=== PATIENT | female | born 1985 | race Caucasian/White ===

== ENCOUNTER 2024-11-05 19:06 | Emergency (ER) | payer MEDICAID, SELFPAY ==
[2024-11-05 19:08] VITALS: BP 102/71; PULSE 92; RESP 16; TEMP 37.1; O2SAT 95; BMI 32.8
[2024-11-05 19:21] VITALS: PULSE 92; RESP 20; O2SAT 98; BMI 32.8
--- NOTE | 2024-11-05 19:46 | EKG_ITS ---
[facility] Test Date: 2024-11-05 Pat Name: GUIDO BENNETT Department: Room: - Gender: Female [employer] Member: : 1985 Requested By: Ruma Morin Order Number: [id number] Reading MD: Ruma Morin Measurements Intervals [place] Rate: 84 P: 48 NH: 142 QRS: 70 QRSD: 89 T: 16 QT: 360 QTc: 426 Interpretive Statements SINUS RHYTHM LOW QRS VOLTAGE IN PRECORDIAL LEADS [QRS DEFLECTION < 1.0 mV IN CHEST LEADS] Compared to ECG 12/18/2020 10:39:33 Low QRS voltage now present /store/S0/[id number].pdf
--- NOTE | 2024-11-05 19:48 | XR_ITS ---
Examination: AP chest single view Technique one AP portable upright chest single view Exam date and time: November 05, 2024 at 1949 hrs. Comparison October 01, 2019 Indications: Coughing shortness of breath beginning one week ago. Findings: Early left base pneumonia, retrocardiac Right lung clear Minimal prominence left ventricle Impression: Early left base pneumonia
--- NOTE | 2024-11-05 19:48 | EDNOTE_ITS ---
ED Dizzyness RME/HPI General Chief Complaint: Dizziness Stated Complaint: dizziness weakness Time Seen by Provider: 11/05/24 19:42 Arrival date/time: 11/05/24 19:06 RME / HPI RME / HPI Narrative: 39-year-old female patient was brought in by EMS for evaluation regarding near syncope. Patient was in the bathroom, suddenly developed near syncope, seeing black, dizzy, and generalized body weakness. Patient told me that she developed massive diarrhea x 1 before it happened. Nonbloody. Patient has been having cough, nasal congestion, sore throat, for the last 3 days. Was seen by PCP today and was started on promethazine, Motrin, Z-Yoshi, and albuterol. Related Data Home Medications ?Medication ?Instructions ?Recorded ?Confirmed conjugated estrogens 0.625 mg 0.625 mg PO QDAY 12/18/20 08/01/24 tablet (Premarin) omeprazole 20 mg tablet,delayed 20 mg PO QDAY 12/18/20 08/01/24 release Previous Rx's ?Medication ?Instructions ?Recorded docusate sodium 100 mg capsule 100 mg PO QDAY #30 caps 12/20/20 oxycodone-acetaminophen 10 mg-325 1 tab PO Q8H PRN pain #40 tabs 12/21/20 mg tablet (Percocet) albuterol sulfate 90 mcg/actuation 2 puff inhalation QID PRN 11/01/21 aerosol inhaler shortness of breath or wheezing #8.5 grams azithromycin 250 mg tablet See Rx Instructions PO .COMPLEX #6 11/01/21 tabs promethazine 12.5 mg tablet 12.5 mg PO TID PRN nausea and 11/01/21 vomiting #20 tabs famotidine 40 mg tablet 40 mg PO QDAY #30 tabs 10/01/22 Allergies Allergy/AdvReac Type Severity Reaction Status Date / Time ciprofloxacin Allergy Intermediate Rash Verified 11/05/24 19:26 latex Allergy Mild RASH Verified 11/05/24 19:26 metoclopramide AdvReac Severe ANXIETY, Verified 11/05/24 19:26 PANIC ATTACK cephalexin AdvReac Intermediate SEVERE Verified 11/05/24 19:26 DIARRHEA OMEGAXL Allergy Mild Rash Uncoded 11/05/24 19:26 Review of Systems Review of Systems Narrative Review of Systems: Review of system reviewed and within normal limits except mentioned in HPI ED Exam Narrative Physical exam: VITAL SIGNS: Reviewed. GENERAL APPEARANCE: Alert and interactive, follows commands, no acute distress, HEAD AND FACE: Non-traumatic. ENT: PERRL, pink conjunctivitis, eyelid no trauma, Mucous membrane moist. NECK: Supple, nontender, no nuchal rigidity. CHEST: No tenderness, no crepitus, no paradoxical movement, no retractions. LUNGS: Clear, well ventilated, symmetric, no rales, no wheezing, no ronchi, no stridor, good breath sounds bilaterally. HEART: Regular rate, regular rhythm, no murmur, no gallops. ABDOMEN: Soft, positive bowel sounds, nondistended, no guarding, nontender, no rebound, no masses, RECTAL: Deferred. GENITAL: Deferred. NEUROLOGICAL: Gross motor function intact sensory function intact, Appropriate for age. MUSCULOSKELETAL: low back nontender, full range of motion. EXTREMITIES: Nontender, full range of motion. SKIN: Color pink, dry, no rash, no lacerations, no abrasions, no contusions. LYMPHATICS: Deferred. Course Quality Measures none Orders Category Date Time Status Bedside COVID-19 Antigen Test NOW Care 11/05/24 19:46 Active Bedside Influenza A&B Antigen Test NOW Care 11/05/24 19:47 Completed EKG (ED ONLY) *Do not use* NOW Care 11/05/24 19:46 Completed EKG (ED Only) Stat Exams 11/05/24 19:46 Draft XR chest 1V Stat Exams 11/05/24 19:48 Completed CBC [CBC] Stat Lab 11/05/24 20:17 Completed CMP [Comprehensive Metabolic Panel] Stat Lab 11/05/24 20:17 Completed UA, C/S IF [Urinalysis, C/S if Indicated] Stat Lab 11/05/24 20:31 Completed Sodium Chloride 0.9% 1000 ml [Ns] 1,000 ml Med 11/05/24 19:47 Discontinued IV 999 mls/hr Vital Signs Vital signs: Vital Signs Temperature 98.8 F 11/05/24 19:08 Pulse Rate 92 11/05/24 19:08 Respiratory Rate 16 11/05/24 19:08 Blood Pressure 102/71 11/05/24 19:08 Pulse Oximetry (%) 95 11/05/24 19:08 Oxygen Delivery Method Room Air 11/05/24 19:08 Dizziness MDM Narrative MDM Narrative:: 39-year-old female patient was brought in by EMS for evaluation regarding near syncope. Patient was in the bathroom, suddenly developed near syncope, seeing black, dizzy, and generalized body weakness. Patient told me that she developed massive diarrhea x 1 before it happened. Nonbloody. Patient has been having cough, nasal congestion, sore throat, for the last 3 days. Was seen by PCP today and was started on promethazine, Motrin, Z-Yoshi, and albuterol. Laboratory workup all came back unremarkable except for leukocytosis of 16.6. Urinalysis no UTI, is a contaminated. Urine. Chest x-ray showed early left base pneumonia. Patient verbalized significant improvement of symptoms after patient received IV fluids. Patient was advised to continue taking Zithromax prescribed by PCP today. Stable for discharge. Patient data External records reviewed:: None Clinical information provided by:: patient Social determinants that could affect healthcare access:: none Patient has the following chronic illnesses:: None How is presenting disease/condition affected by chronic disease/condition?: no chronic disease Evaluation data The following diagnostics were reviewed and interpreted by me:: lab results, radiology exam(s) and EKG tracing(s) Lab and/or radiology exams considered but not ordered:: None Interpretation Summary: EKG showed sinus rhythm, ventricular rate of 84 bpm, MS interval 142 MS, no ST segment elevation depression laboratory workup all came back unremarkable except for leukocytosis 16.6. Chest x-ray showed early left base pneumonia. Results discussed with the patient. Medications / Prescriptions Medications or Prescriptions considered but not ordered:: Plan Medication administrations:: Medication Administration History Discontinued Medications Sodium Chloride (Ns) 1,000 mls @ 999 mls/hr IV .Q1H1M ONE Stop: 11/05/24 20:47 Last Admin: 11/05/24 20:24 Dose: 999 mls/hr Documented By: AC IV fluids for hydration Consultations Consultation(s) initiated? (list below): No Diagnosis Dizziness Differential Diagnosis: other (Dehydration, near syncope, dizziness, pneumonia) Most likely diagnosis given after review of the tests above:: Near-syncope, pneumonia Admission Indicated Admission indicated?: not indicated Admission Request Was there a request for admission?: No Disposition Plan Disposition Plan: Discharge Discharge Attestation Discharge Attestation: The patient and all family members were given an opportunity to ask questions and understood the discharge instructions. Discharge instructions specifically effects, indications for sooner follow up or return to the emergency department, and the expected course of current diagnosis. Patient condition: Stable Discharge Plan Plan Patient Disposition: HOME (Self Care) Disposition Comment: stable Prescriptions/Referrals Prescriptions/Med Rec: No Action Premarin 0.625 mg Tablet 0.625 mg PO QDAY omeprazole 20 mg Tablet,Delayed Release (Dr/Ec) 20 mg PO QDAY docusate sodium 100 mg Capsule 100 mg PO QDAY Qty: 30 0RF oxycodone-acetaminophen [Percocet] 10-325 mg tablet 1 tab PO Q8H MDD 3 PRN (Reason: pain) Qty: 40 0RF azithromycin 250 mg tablet See Rx Instructions .ROUTE .COMPLEX Qty: 6 0RF Rx Instructions: For 250 mg dose pack: take 500 mg today (day 1), then 250 mg for 4 days (days 2-5) albuterol sulfate 90 mcg/actuation HFA aerosol inhaler 2 puff inhalation QID PRN (Reason: shortness of breath or wheezing) Qty: 8.5 0RF promethazine 12.5 mg tablet 12.5 mg PO TID PRN (Reason: nausea and vomiting) Qty: 20 0RF famotidine 40 mg tablet 40 mg PO QDAY Qty: 30 0RF Referrals: No Primary/Family,Physician [Referring Provider] - In 1 week Problem List Clinical Impression: PNA (pneumonia) Patient/Caregiver Discharge Instructions Discharge Activity: activity as tolerated Education Materials: What Is Pneumonia? Additional Instructions: Thank you for the opportunity for serving you today. You are stable for discharged . You are advised to: Follow-up with your PCP in 1 to 2 days Return to ED for worsening of symptoms Increase oral fluids Take medication as prescribed by your PCP Try to stop taking your promethazine if it will give you a lot of dizziness. Print Language: Hungarian Stand Alone Forms: Debbie Award Info., Patient Portal Info Letter KIM/CHAUNCEY Supervising Physician KIM/CHAUNCEY Supervising Physician: MD Meredith
[2024-11-05] MEDS: SODIUM CHLORIDE 0.9% 1000 ML 1,000 ML 999 ML IV (20:24)
[2024-11-05 20:43] LABS: Collection Type, Urine Clean Catch
[2024-11-05 20:45] LABS: Basophils % (Auto) 0 % (0-2.5); Eosinophils % (Auto) 0 % (0-10); Hematocrit 40.1 % (36.0-46.0); Hemoglobin 13.8 g/dL (12.0-16.0); Immature Granulocytes % (Auto) 1 % (0-0); Immature Granulocytes Auto 0.09 Thou/mm3 (0.00-0.00); Lymphocytes # (Auto) 1.2 Thou/mm3 (1.0-4.8); Lymphocytes % (Auto) 8 % (10-50); Mean Corpuscular HGB Conc 34.4 g/dl (31.0-37.0); Mean Corpuscular Hemoglobin 28.5 pg (25.0-35.0); Mean Corpuscular Volume 83 fL (80-100); Monocytes # (Auto) 1.3 Thou/mm3 (0.0-0.8); Monocytes % (Auto) 8 % (0-12); Neutrophils # (Auto) 13.9 Thou/mm3 (1.8-7.7); Neutrophils % (Auto) 84 % (37-80); Nucleated Red Blood Cell % 0 /100 WBC (0); Platelet Count 295 Thou/mm3 (140-440); RDW Standard Deviation 37.9 fL (36.4-46.3); Red Blood Count 4.84 Miln/mm3 (4.00-5.20); White Blood Count 16.6 Thou/mm3 (3.6-11.0)
[2024-11-05 20:53] LABS: Bacteria,Urine Rare; Bilirubin,Urine Negative (Negative); Blood,Urine 1+ (Negative); Clarity,Urine Turbid (Clear/Hazy); Color,Urine Yellow (Lt Yel-Yel); Culture Indicated,Urine Contaminated; Glucose, Urine Trace (Negative); Ketones,Urine 1+ (Negative); Leukocyte Esterase,Urine Positive (Negative); Nitrite,Urine Negative (Negative); Protein,Urine 1+ (Neg - Trace); RBC,Urine 6 /hpf (0-3); Specific Gravity,Urine 1.034 (1.001-1.035); Squamous Epithelial Cell,Urine 16 /hpf (0-5); Urobilinogen,Urine Negative mg/dL (0.0-1.0); WBC,Urine 25 /hpf (0-5)
[2024-11-05 21:00] VITALS: BP 103/58; PULSE 89; RESP 18; TEMP 36.6; O2SAT 96
[2024-11-05 21:02] LABS: Alanine Aminotransferase 18 U/L (10-49); Albumin, Serum 4.8 gm/dL (3.5-5.0); Albumin/Globulin Ratio 1.5 (1.2-2.2); Alkaline Phosphatase 90 U/L (46-116); Anion Gap 12 (7-16); Aspartate Amino Transferase 20 U/L (0-34); BUN/Creatinine Ratio 13 Ratio (12-20); Bilirubin,Total 0.8 mg/dL (0.3-1.2); Blood Urea Nitrogen 12 mg/dL (9-23); Calcium 9.6 mg/dL (8.3-10.6); Calcium (Corrected) 9.6 mg/dL (8.5-10.1); Carbon Dioxide 20.9 mMol/L (20.0-31.0); Chloride 103 mMol/L (98-107); Creatinine (Component) 0.9 mg/dL (0.6-1.3); Estimated Creatinine Clearance 86.1 mL/min (>60); Globulin 3.2 gm/dL (2.3-3.5); Glucose 99 mg/dL (74-106); Osmolality,Calculated 271 (275-295); Potassium 3.5 mMol/L (3.4-5.1); Sodium 136 mMol/L (136-145); eGFR > 60 See Note
[2024-11-05 21:43] VITALS: BP 103/57; PULSE 79; RESP 18; TEMP 36.7; O2SAT 96
== END 2024-11-05 21:45 | disposition home or self-care (01) ==
PROVIDERS: Nurse Practitioner Family; Emergency Provider Emergency Medicine; PCP Family Medicine
DX: J18.9 Pneumonia, unspecified organism (principal)
CPT/HCPCS: 36415; 71045; 80053; 81001; 85025; 87400; 87811; 93005; 96360; 99284; J7030

== ENCOUNTER 2025-01-30 14:32 | Emergency (ER) | payer MEDICAID, SELFPAY ==
[2025-01-30 14:35] VITALS: BMI 30.9
[2025-01-30 14:59] VITALS: BP 119/81; PULSE 92; RESP 16; TEMP 36.8; O2SAT 97
--- NOTE | 2025-01-30 16:41 | EDNOTE_ITS ---
<Statement entered by Dipti Villarreal MD - 01/30/25 17:51> As co-signing physician, I was present and available for consult prn. I concur with the plan and care as documented by the midlevel provider. ED Headache RME/HPI General Chief Complaint: Headache Stated Complaint: IRBY WITH BLUR VISION Time Seen by Provider: 01/30/25 15:14 Source: patient Arrival date/time: 01/30/25 14:32 39-year-old female with no known medical history presents to the emergency room with a chief complaint of a unilateral right-sided headache with intermittent blurry vision x 1 day Mode of arrival: ambulatory Limitations: no limitations Related Data Home Medications ?Medication ?Instructions ?Recorded ?Confirmed conjugated estrogens 0.625 mg 0.625 mg PO QDAY 1 08/01/24 tablet (Premarin) omeprazole 20 mg tablet,delayed 20 mg PO QDAY 12/18/20 08/01/24 release Previous Rx's ?Medication ?Instructions ?Recorded docusate sodium 100 mg capsule 100 mg PO QDAY #30 caps 12/20/20 oxycodone-acetaminophen 10 mg-325 1 tab PO Q8H PRN douglas n #40 tabs 12/21/20 mg tablet (Percocet) albuterol sulfate 90 mcg/actuation 2 puff inhalation Q ID PRN 11/01/21 aerosol inhaler shortness of breath or wheez ing #8.5 grams azithromycin 250 mg tablet See Rx Instructions PO .COM PLEX #6 11/01/21 tabs promethazine 12.5 mg tablet 12.5 mg PO TID PRN nausea and 11/01/21 vomiting #20 tabs famotidine 40 mg tablet 40 mg PO QDAY #30 tabs 10/01 Allergies Allergy/AdvReac Type Severity Reaction Status Date / Time ciprofloxacin Allergy Intermediate Rash Verified 11/05/24 19:26 latex Allergy Mild RASH Verified 11/05/24 19:26 metoclopramide AdvReac Severe ANXIETY, Verified 11/05/24 19:26 PANIC ATTACK cephalexin AdvReac Intermediate SEVERE Verified 11/05/24 19:26 DIARRHEA OMEGAXL Allergy Mild Rash Uncoded 11/05/24 19:26 Review of Systems Review of Systems Systems Reviewed: All systems reviewed, normal except as documented Constitutional Constitutional: Reports system reviewed and no additional complaints, except as documented, Denies fatigue, Denies fever(s), Reports headache(s) and Reports weakness Eyes Eyes: Reports system reviewed and no additional complaints, except as documented, Denies blurry vision and Denies change in vision ENT Ears, Nose, Mouth, and Throat: Reports system reviewed and no additional complaints, except as documented, Denies otalgia, Reports headache(s), Denies nasal congestion, Denies throat swelling and Denies vertigo Cardiovascular Cardiovascular: Reports system reviewed and no additional complaints, except as documented, Denies chest pain, Denies dyspnea and Denies dyspnea on exertion Respiratory Respiratory: Reports system reviewed and no additional complaints, except as documented, Denies chest congestion, Denies cough, Denies dyspnea, Denies dyspnea on exertion and Denies wheezing Gastrointestinal Gastrointestinal: Reports system reviewed and no additional complaints, except as documented, Denies abdominal pain, Denies cramping, Denies nausea and Denies vomiting Genitourinary Genitourinary: Reports system reviewed and no additional complaints, except as documented Musculoskeletal Musculoskeletal: Reports system reviewed and no additional complaints, except as documented and Denies back pain Integumentary/Breasts Skin/Breast: Reports system reviewed and no additional complaints, except as documented and Denies wounds Neurologic Neurologic: Reports system reviewed and no additional complaints, except as d ocumented, Denies confusion, Reports headache(s), Denies lack of coordination, Denies vertigo and Reports weakness Psychiatric Psychiatric: Reports system reviewed and no additional complaints, except as documented, Denies anxiety, Denies confusion, Denies depression, Denies paranoia, Denies suicidal ideation and Denies tactile hallucinations Endocrine Endocrine: Reports system reviewed and no additional complaints, except as documented and Denies fatigue Hematologic/Lymphatic Hematologic/Lymphatic: Reports system reviewed and no additional complaints, except as documented and Denies lymphadenopathy Allergic/Immunologic Allergic/Immunologic: Reports system reviewed and no additional complaints, except as documented, Denies throat swelling, Denies urticaria and Denies wheezing Past Medical History Past Medical History NEUROLOGIC: Positive Migraine (INDUCED BY LUPRON SHOTS); Negative Neurological Disorders or Seizures CARDIAC: Positive Cardiac Disorders and Edema (LEFT ANKLE PT HAS BRACE); Negative Congestive Heart Failure, Cellulitis or Varicose Veins RESPIRATORY: Positive Pneumonia (DEVELOP PNUEMONIA POST OP HYSTERECTOMY 2018); Negative Chronic Obstructive Pulmonary Disease (COPD), Tuberculosis, Pulmonary Embolism or Sleep Apnea GASTROINTESTINAL: Positive Gastrointestinal Disorders, Pancreatitis (HX), Gall Bladder Disease (LAP) and Gastroesophageal Reflux Disease (TAKES MED); Negative Hepatitis GENITOURINARY: Positive Genitourinary Disorders and Kidney Stones (HAD ONE PROC); Negative Renal Disease REPRODUCTIVE: Positive Previous Pregnancies (X2) MENOPAUSE AGE: 35 (Patient had total hysterectomy 6 months ago) MUSCULOSKELETAL: Positive Musculoskeletal Disorders, Scoliosis (MILD) and Fractures (LEFT TIBIA FOR THIS PROC (PT FELL 04/2020) HAS BRACE) ENDOCRINE: Positive Endocrine Disorders; Negative Diabetes Mellitus Type 1 or Diabetes Mellitus Type 2 HEMATOLOGIC: Negative Blood Disorders or Clotting Problems OTHER HISTORY: Positive Falls (04/2020 FOR THIS PROC, 10/2020 ER VISIT) and Chicken Pox; Negative Hospitalization, Autoimmune Disease, Shingles, Blood Transfusions, Blood Transfusion Reaction, Anesthesia Reactions, Chemotherapy, Radiation Therapy, MRSA, Measles, Mumps or Cancer Family History FAMILY HISTORY: Positive Family Psychiatric Problems, Family Cardiac Disorders, Family Gastrointestinal Problems and Family Surgery; Negative Family Respiratory Disorders, Family Cancer or Family Anesthesia Reaction Surgical History SURGICAL: Positive Abdominal Surgery, Hysterectomy (KAMRA WITH GISELA SALPINGO) and Section; Negative Cardiac Surgery, Pacemaker, Endocrine Surgery, Ear Surgery, Nephrectomy, Joint Replacement or Neurologic Surgery Social History SMOKING STATUS: Former smoker SECOND HAND EXPOSURE: Yes SUBSTANCE USE: does not use ED Exam General Limitations: Present no limitations General appearance: Present alert and in no apparent distress Head Head exam: Present atraumatic Eye Eye exam: Present normal appearance, PERRL and EOMI ENT ENT exam: Present normal exam, normal oropharynx and mucous membranes moist Neck Neck exam: Present normal inspection, full ROM and trachea midline Chest Chest inspection: Present normal inspection and symmetric chest wall rise Respiratory Respiratory exam: Present normal lung sounds bilaterally Cardiovascular Cardiovascular exam: Present regular rate, normal rhythm and normal heart sounds Abdominal Exam Abdominal exam: Present soft and normal bowel sounds Extremities Exam Extremities exam: Present normal inspection and full ROM Back Exam Back exam: Present normal inspection and full ROM Neurological Exam Neurological exam: Present alert, oriented X3, CN II-XII intact, normal gait and reflexes normal Expanded Neurological Exam Patient oriented to: Present person, place and time Speech: Present fluid speech Cranial nerves: Normal: EOM function (II, III, IV, ), facial sensation (V) and facial palsy (VII) Cerebellar function: Normal: finger to nose Cerebellar function: Present normal gait Motor strength - LUE: 5/5 Motor strength - RUE: 5/5 Motor strength - LLE: 5/5 Motor strength - RLE: 5/5 Coma scale eye opening: spontaneous Coma scale motor response: obeys commands Coma scale verbal response: oriented Coma scale total: 15 Psychiatric Psychiatric exam: Present normal affect and normal mood Skin Skin exam: Present warm, dry, intact and normal color Course Quality Measures none Orders Category Date Time Status Acetaminophen Tab [Tylenol Tab] Med 01/30/25 15:13 Discontinued 650 mg PO X1 ONE DiphenhydrAMINE [Benadryl] Med 01/30/25 15:13 Discontinued 25 mg PO X1 ONE SUMAtriptan INJ [Imitrex Inj] Med 01/30/25 15:13 Discontinued 6 mg SC X1 ONE Vital Signs Vital signs: Vital Signs Temperature 98.2 F 01/30/25 14:59 Pulse Rate 92 01/30/25 14:59 Respiratory Rate 16 01/30/25 14:59 Blood Pressure 119/81 01/30/25 14:59 Pulse Oximetry (%) 97 01/30/25 14:59 Oxygen Delivery Method Room Air 01/30/25 14:59 Headache MDM Narrative MDM Narrative:: 39-year-old female with no known medical history presents to the emergency room with a chief complaint of a unilateral right-sided headache with intermittent blurry vision x 1 day Patient is hemodynamically stable and in no apparent distress Physical examination shows a normal GCS of 15. She is alert and oriented x 3. Pupils are PERRLA EOMs are intact. The patient has a normal steady gait all cranial reflexes are intact. Patient denies any dizziness lightheadedness confusion near syncope episodes. Patient states the headache began this morning and she is having more pain to the right side of her head. Medication was prescribed to the patient but patient states at this point she does not want to take any medication due to her having a lot of allergies. Patient states that at this time she would like to be discharged with strict return precautions if anything gets worse. Patient was discharged and educated to follow-up with primary care provider in the next 24 to 48 hours and return to the emergency room for any evidence of worsening signs or symptoms Patient data External records reviewed:: [facility] previous records Clinical information provided by:: patient Social determinants that could affect healthcare access:: none Patient has the following chronic illnesses:: No chronic illness How is presenting disease/condition affected by chronic disease/condition?: no chronic disease Evaluation data The following diagnostics were reviewed and interpreted by me:: lab results and radiology exam(s) Lab and/or radiology exams considered but not ordered:: Labs and radiology exams considered in order Interpretation Summary: N/A Medications / Prescriptions Medications or Prescriptions considered but not ordered:: Medication given Medication administrations:: Medication Administration History Discontinued Medications Acetaminophen (Acetaminophen 325 Mg Tablet) 650 mg PO X1 ONE Stop: 01/30/25 15:14 Last Admin: 01/30/25 15:38 Dose: Not Given Documented By: MED Non-Admin Reason: Patient Refused Diphenhydramine HCl (Diphenhydramine Elix 25 Mg/10 Ml Udc) 25 mg PO X1 ONE Stop: 01/30/25 15:14 Last Admin: 01/30/25 15:38 Dose: Not Given Documented By: KF Non-Admin Reason: Patient Refused Sumatriptan Succinate (Sumatriptan Inj 6 Mg/0.5 Ml Vial) 6 mg SC X1 ONE Stop: 01/30/25 15:14 Last Admin: 01/30/25 15:38 Dose: Not Given Documented By: KF Non-Admin Reason: Patient Refused Medication not given Consultations Consultation(s) initiated? (list below): No Diagnosis Differential diagnosis headache: migraine, tension headache, subarachnoid hemorrhage and headache Most likely diagnosis given after review of the tests above:: Headache Admission Indicated Admission indicated?: not indicated Admission Request Was there a request for admission?: No Disposition Plan Disposition Plan: Discharge Discharge Attestation Discharge Attestation: The patient and all family members were given an opportunity to ask questions and understood the discharge instructions. Discharge instructions specifically effects, indications for sooner follow up or return to the emergency department, and the expected course of current diagnosis. Patient condition: Stable Discharge Plan Plan Patient Disposition: HOME (Self Care) Disposition Comment: Stable Prescriptions/Referrals Prescriptions/Med Rec: No Action Premarin 0.625 mg Tablet 0.625 mg PO QDAY omeprazole 20 mg Tablet,Delayed Release (Dr/Ec) 20 mg PO QDAY docusate sodium 100 mg Capsule 100 mg PO QDAY Qty: 30 0RF oxycodone-acetaminophen [Percocet] 10-325 mg tablet 1 tab PO Q8H MDD 3 PRN (Reason: pain) Qty: 40 0RF azithromycin 250 mg tablet See Rx Instructions .ROUTE .COMPLEX Qty: 6 0RF Rx Instructions: For 250 mg dose pack: take 500 mg today (day 1), then 250 mg for 4 days (days 2-5) albuterol sulfate 90 mcg/actuation HFA aerosol inhaler 2 puff inhalation QID PRN (Reason: shortness of breath or wheezing) Qty: 8.5 0RF promethazine 12.5 mg tablet 12.5 mg PO TID PRN (Reason: nausea and vomiting) Qty: 20 0RF famotidine 40 mg tablet 40 mg PO QDAY Qty: 30 0RF Referrals: Rosendo Koch MD [Primary Care Provider] - In 1 week Problem List Clinical Impression: Headache Patient/Caregiver Discharge Instructions Education Materials: Self-Care for Headaches Additional Instructions: Please follow-up with your primary care provider in the next 24 to 40 hours. For any evidence of worsening sign or symptom return to the emergency room immediately Print Language: Amharic Stand Alone Forms: Debbie Award Info., Patient Portal Info Letter PA/CHAUNCEY Supervising Physician PA/CHAUNCEY Supervising Physician: Dr. VILLARREAL
== END 2025-01-30 15:39 | disposition home or self-care (01) ==
PROVIDERS: Emergency Provider Emergency Medicine; PCP Family Medicine
DX: R51.9 Headache, unspecified (principal); H53.8 Other visual disturbances
CPT/HCPCS: 99282

== ENCOUNTER 2025-04-15 20:57 | Emergency (ER) | payer MEDICAID, SELFPAY ==
[2025-04-15 20:58] VITALS: BMI 28.3
[2025-04-15 21:18] VITALS: BP 109/75; PULSE 84; RESP 18; TEMP 36.7; O2SAT 98
[2025-04-15 22:22] LABS: Collection Type, Urine Clean Catch
--- NOTE | 2025-04-15 22:27 | EDNOTE_ITS ---
ED Abdominal Pain RME/HPI General Chief Complaint: Abdominal Pain Stated complaint: ABD PAIN R FLANK PAIN NV Arrival date/time: 04/15/25 20:57 RME / HPI RME / HPI narrative: This section includes all my notes and documentations, including HPI, PE, and ED course. Pawel Laird MD HPI: 40 y/o female with history of Hysterectomy, Pancreatitis, Gall Bladder Disease, and Gastroesophageal Reflux Disease presents with upper abdominal pain that radiates to the back, vomiting, and chills x several hours. Patient started Wegovy in November, several months ago. No other complaints. ROS: All negative except as documented in HPI. Physical Exam: General: Alert and oriented. No acute distress when remaining still. Eyes: Conjunctivae and lids clear. ENT: No nasal congestion. Neck: Supple. Heart: RRR. Lungs: No respiratory distress. Good air movement. No rhonchi, wheezing, rales. Abdomen: Soft with rght upper quadrant tenderness. Normal bowel sounds. No distension. No rebound or guarding. Back: No CVA tenderness. Skin: Warm and dry. Neuro: Alert and oriented X 3. I reviewed all diagnostic test results: My review of the US report is: NAD. My review of the Abdomen/Pelvis CT report is: NAD. Blood tests and urine tests unremarkable. Influenza: Negative. At this point, diagnoses include: Stomach ulcer. Treatment here included: Pepcid 20 mg, Zofran 4 mg, Protonix 40 mg. Significant improvement noted. Recommended outpatient care. Based on my best medical judgment, made decision no further evaluation or treatment indicated at this time. Patient understands and agrees to the discharge instructions customized and printed, see below. Discharge instructions from Dr. Laird: ?After evaluation, your symptoms are due to stomach ulcer (see attached handout).? There is no emergency such as appendicitis needing emergent surgery. ?To help heal the ulcer, take Omeprazole 40 mg every morning and Famotidine 40 mg at bedtime for a week then as needed. ?Zofran for nausea/vomiting.? Clear liquid diet for 24 hours.? Then slowly advance diet as tolerated. ?Avoid food and beverages that can trigger and worsen ulcers.? See attached handout. ?See a private doctor on 04/17/2025 for recheck and further care. Ask to review all test results and official radiology reports, to make sure you receive all necessary follow-ups and monitoring. To make sure there is no serious intra-abdominal condition, ask for help with more investigation not available here in the ER.? Such as EGD or scoping the stomach, colonoscopy or scoping the colon, and referral to see business continuity planner. ?Seek immediate medical care with worsening or with any concerns. Pawel Laird MD Related Data Home Medications ?Medication ?Instructions ?Recorded ?Confirmed conjugated estrogens 0.625 mg 0.625 mg PO QDAY 1 08/01/24 tablet (Premarin) omeprazole 20 mg tablet,delayed 20 mg PO QDAY 12/18/20 08/01/24 release Previous Rx's ?Medication ?Instructions ?Recorded docusate sodium 100 mg capsule 100 mg PO QDAY #30 caps 12/20/20 oxycodone-acetaminophen 10 mg-325 1 tab PO Q8H PRN douglas n #40 tabs 12/21/20 mg tablet (Percocet) albuterol sulfate 90 mcg/actuation 2 puff inhalation Q ID PRN 11/01/21 aerosol inhaler shortness of breath or wheez ing #8.5 grams azithromycin 250 mg tablet See Rx Instructions PO .COM PLEX #6 11/01/21 tabs promethazine 12.5 mg tablet 12.5 mg PO TID PRN nausea and 11/01/21 vomiting #20 tabs famotidine 40 mg tablet 40 mg PO QDAY #30 tabs 10/01 famotidine 40 mg tablet 40 mg PO .bedtime #30 tabs 0 04/16/25 omeprazole 40 mg capsule,delayed 40 mg PO QDAY #30 cap s 04/16/25 release ondansetron 4 mg disintegrating 4 mg PO TID PRN nausea and 04/16/25 tablet vomiting 30 days #10 tabs Allergies Allergy/AdvReac Type Severity Reaction Status Date / Time ciprofloxacin Allergy Intermediate Rash Verified 04/15/25 21:04 latex Allergy Mild RASH Verified 04/15/25 21:04 metoclopramide AdvReac Severe ANXIETY, Verified 04/15/25 21:04 PANIC ATTACK cephalexin AdvReac Intermediate SEVERE Verified 04/15/25 21:04 DIARRHEA OMEGAXL Allergy Mild Rash Uncoded 04/15/25 21:04 Review of Systems Review of Systems Systems Reviewed: All systems reviewed, normal except as documented Past Medical History Past Medical History NEUROLOGIC: Positive Migraine (INDUCED BY LUPRON SHOTS) CARDIAC: Positive Cardiac Disorders and Edema (LEFT ANKLE PT HAS BRACE) RESPIRATORY: Positive Pneumonia (DEVELOP PNUEMONIA POST OP HYSTERECTOMY 2018) GASTROINTESTINAL: Positive Gastrointestinal Disorders, Pancreatitis (HX), Gall Bladder Disease (LAP) and Gastroesophageal Reflux Disease (TAKES MED) GENITOURINARY: Positive Genitourinary Disorders and Kidney Stones (HAD ONE PROC) REPRODUCTIVE: Positive Previous Pregnancies (X2) MUSCULOSKELETAL: Positive Musculoskeletal Disorders, Scoliosis (MILD) and Fractures (LEFT TIBIA FOR THIS PROC (PT FELL 04/2020) HAS BRACE) ENDOCRINE: Positive Endocrine Disorders OTHER HISTORY: Positive Falls (04/2020 FOR THIS PROC, 10/2020 ER VISIT) and Chicken Pox Family History FAMILY HISTORY: Positive Family Psychiatric Problems, Family Cardiac Disorders, Family Gastrointestinal Problems and Family Surgery Surgical History SURGICAL: Positive Abdominal Surgery and Section Social History SECOND HAND EXPOSURE: Yes ED Exam Narrative Physical exam: Refer to HPI Course Quality Measures none Orders Category Date Time Status Bedside Influenza A&B Antigen Test NOW Care 04/15/25 22:[address] abdomen pelvis wo con Stat Exams 04/15/25 22:30 Taken US gall bladder Stat Exams 04/16/25 01:57 Taken Amylase Stat Lab 04/15/25 22:47 Completed Bilirubin,Direct Stat Lab 04/15/25 22:47 Completed CBC Stat Lab 04/15/25 22:47 Completed CMP [Comprehensive Metabolic Panel] Stat Lab 04/15/25 22:47 Completed HCG Qualitative,Urine Stat Lab 04/15/25 22:18 Completed Lipase Stat Lab 04/15/25 22:47 Completed Magnesium Stat Lab 04/15/25 22:47 Completed UA, C/S IF [Urinalysis, C/S if Indicated] Stat Lab 04/15/25 22:18 Completed Famotidine [Pepcid] Med 04/15/25 22:29 Discontinued 40 mg PO X1 ONE Ondansetron Odt [Zofran Odt] Med 04/15/25 22:21 Discontinued 4 mg PO X1 ONE Pantoprazole [Protonix] Med 04/15/25 22:29 Discontinued 40 mg PO X1 ONE Vital Signs Vital signs: Vital Signs Temperature 98.1 F 04/15/25 21:18 Pulse Rate 84 04/15/25 21:18 Respiratory Rate 18 04/15/25 21:18 Blood Pressure 109/75 04/15/25 21:18 Pulse Oximetry (%) 98 04/15/25 21:18 Oxygen Delivery Method Room Air 04/15/25 21:18 Abdominal Pain MDM MDM Narrative MDM Narrative:: Scribe Attestation: I, Sunita Rocha, am scribing for and in the presence of Dr. Laird. Provider Notation: Although this document has been carefully reviewed, there may still be some phonetic and other typographical errors.? These errors are purely grammatical due to imperfections in the software program and should not be construed in any way to? compromise the substance of the patient's medical care during this visit. 40 y/o female with history of Hysterectomy, Pancreatitis, Gall Bladder Disease, and Gastroesophageal Reflux Disease presents with upper abdominal pain that radiates to the back, vomiting, and chills x several hours. Patient started Wegovy in November, several months ago. No other complaints. Patient data External records reviewed:: [facility] previous records (Reviewed prior ED records from 01/30/25. Patient was seen for Headache.) Clinical information provided by:: patient Social determinants that could affect healthcare access:: none Patient has the following chronic illnesses:: Migraine, Edema, Pancreatitis, Gall Bladder Disease, Gastroesophageal Reflux Disease, Kidney Stones, Scoliosis How is presenting disease/condition affected by chronic disease/condition?: exacerbated by Evaluation data The following diagnostics were reviewed and interpreted by me:: lab results and radiology exam(s) Lab and/or radiology exams considered but not ordered:: None Interpretation Summary: I reviewed all diagnostic test results: My review of the US report is: NAD. My review of the Abdomen/Pelvis CT report is: NAD. Blood tests and urine tests unremarkable. Influenza: Negative. Medications / Prescriptions Medications or Prescriptions considered but not ordered:: None Medication administrations:: Medication Administration History Discontinued Medications Famotidine (Famotidine 20 Mg Tablet) 40 mg PO X1 ONE Stop: 04/15/25 22:30 Last Admin: 04/15/25 23:02 Dose: 40 mg Documented By: MED Ondansetron HCl (Ondansetron Odt 4 Mg Tabrap) 4 mg PO X1 ONE; Protocol Stop: 04/15/25 22:22 Last Admin: 04/15/25 23:02 Dose: 4 mg Documented By: MED Pantoprazole Sodium (Pantoprazole 40 Mg Tablet) 40 mg PO X1 ONE Stop: 04/15/25 22:30 Last Admin: 04/15/25 23:02 Dose: 40 mg Documented By: MED Pepcid 20 mg, Zofran 4 mg, Protonix 40 mg. Consultations Consultation(s) initiated? (list below): No Diagnosis Differential diagnosis abdominal pain: abdominal pain, acute appendicitis, calculus of kidney, constipation, diverticulitis, gastroenteritis, pancreatitis and small bowel obstruction Most likely diagnosis given after review of the tests above:: Stomach ulcer Admission Indicated Admission indicated?: not indicated Explain why admission is indicated or not indicated:: With significant improvement in no condition needing emergent intervention, there was no indication for admission. Admission Request Was there a request for admission?: No Disposition Plan Disposition Plan: Discharge Discharge Attestation Discharge Attestation: The patient and all family members were given an opportunity to ask questions and understood the discharge instructions. Discharge instructions specifically effects, indications for sooner follow up or return to the emergency department, and the expected course of current diagnosis. Patient condition: Stable Discharge Plan Plan Patient Disposition: HOME (Self Care) Prescriptions/Referrals Prescriptions/Med Rec: New famotidine 40 mg tablet 40 mg PO .bedtime Qty: 30 0RF omeprazole 40 mg capsule,delayed release(DR/EC) 40 mg PO QDAY Qty: 30 0RF ondansetron 4 mg tablet,disintegrating 4 mg PO TID PRN (Reason: nausea and vomiting) 30 Days Qty: 10 0RF No Action Premarin 0.625 mg Tablet 0.625 mg PO QDAY omeprazole 20 mg Tablet,Delayed Release (Dr/Ec) 20 mg PO QDAY docusate sodium 100 mg Capsule 100 mg PO QDAY Qty: 30 0RF oxycodone-acetaminophen [Percocet] 10-325 mg tablet 1 tab PO Q8H MDD 3 PRN (Reason: pain) Qty: 40 0RF azithromycin 250 mg tablet See Rx Instructions .ROUTE .COMPLEX Qty: 6 0RF Rx Instructions: For 250 mg dose pack: take 500 mg today (day 1), then 250 mg for 4 days (days 2-5) albuterol sulfate 90 mcg/actuation HFA aerosol inhaler 2 puff inhalation QID PRN (Reason: shortness of breath or wheezing) Qty: 8.5 0RF promethazine 12.5 mg tablet 12.5 mg PO TID PRN (Reason: nausea and vomiting) Qty: 20 0RF famotidine 40 mg tablet 40 mg PO QDAY Qty: 30 0RF Referrals: No Primary/Family,Physician [Primary Care Provider] - In 1 week Problem List Clinical Impression: Stomach ulcer Patient/Caregiver Discharge Instructions Discharge Activity: activity as tolerated Education Materials: ED PEPTIC ULCER vs GASTRITIS Additional Instructions: Discharge instructions from Dr. Laird: ?After evaluation, your symptoms are due to stomach ulcer (see attached handout).? There is no emergency such as appendicitis needing emergent surgery. ?To help heal the ulcer, take Omeprazole 40 mg every morning and Famotidine 40 mg at bedtime for a week then as needed. ?Zofran for nausea/vomiting.? Clear liquid diet for 24 hours.? Then slowly advance diet as tolerated. ?Avoid food and beverages that can trigger and worsen ulcers.? See attached handout. ?See a private doctor on 04/17/2025 for recheck and further care. Ask to review all test results and official radiology reports, to make sure you receive all necessary follow-ups and monitoring. To make sure there is no serious intra-abdominal condition, ask for help with more investigation not available here in the ER.? Such as EGD or scoping the stomach, colonoscopy or scoping the colon, and referral to see business continuity planner. ?Seek immediate medical care with worsening or with any concerns. Print Language: Bolivian Stand Alone Forms: Debbie Award Info., Patient Portal Info Letter
--- NOTE | 2025-04-15 22:30 | XR_ITS ---
Examination: CT abdomen and pelvis without contrast. Coronal 3-D reconstructions. Sagittal 2-D reconstructions. Date and time of exam:April 16, 2025 0021 hours Comparison March 08, 2019 INDICATIONS: Sudden right-sided flank pain today. CTDI: vol (mGy): 11 DLP: (mGycm): 581 Technique: Axial images of the abdomen have been obtained, 3 mm slice thickness Intravenous contrast material has not been administered. Low dose protocols were performed. One or more of the following dose reduction techniques were used; automated exposure control, adjustment of the mA and/or KV according to patient size, use of iterative reconstruction technique. Findings: Small liver cysts Absent gallbladder No pancreatic mass 3 mm 6 mm left renal calculi, no hydronephrosis or ureteral calculi Aorta normal size Tiny fat-containing umbilical hernia Normal appendix No bowel obstruction Colonic diverticulosis No bladder mass or bladder calculi Impression : Nonobstructing left renal calculi No hydronephrosis or ureteral calculi Normal appendix
[2025-04-15 22:32] LABS: Bilirubin,Urine Negative (Negative); Blood,Urine 1+ (Negative); Clarity,Urine Clear (Clear/Hazy); Color,Urine Yellow (Lt Yel-Yel); Culture Indicated,Urine Not Indicated; Glucose, Urine Negative (Negative); HCG Qualitative,Urine Negative; Ketones,Urine Negative (Negative); Leukocyte Esterase,Urine Negative (Negative); Nitrite,Urine Negative (Negative); Protein,Urine Negative (Neg - Trace); RBC,Urine 2 /hpf (0-3); Specific Gravity,Urine 1.025 (1.001-1.035); Squamous Epithelial Cell,Urine 2 /hpf (0-5); Urobilinogen,Urine Negative mg/dL (0.0-1.0); WBC,Urine 3 /hpf (0-5)
[2025-04-15 22:52] LABS: Basophils % (Auto) 0 % (0-2.5); Eosinophils % (Auto) 0 % (0-10); Hematocrit 42.4 % (36.0-46.0); Hemoglobin 14.4 g/dL (12.0-16.0); Immature Granulocytes % (Auto) 0 % (0-0); Immature Granulocytes Auto 0.02 Thou/mm3 (0.00-0.00); Lymphocytes % (Auto) 31 % (10-50); Mean Corpuscular Hemoglobin 28.7 pg (25.0-35.0); Mean Corpuscular Volume 85 fL (80-100); Monocytes # (Auto) 0.6 Thou/mm3 (0.0-0.8); Monocytes % (Auto) 6 % (0-12); Neutrophils # (Auto) 6.3 Thou/mm3 (1.8-7.7); Neutrophils % (Auto) 63 % (37-80); Nucleated Red Blood Cell % 0 /100 WBC (0); Platelet Count 272 Thou/mm3 (140-440); RDW Standard Deviation 38.9 fL (36.4-46.3); Red Blood Count 5.02 Miln/mm3 (4.00-5.20)
[2025-04-15] MEDS: ONDANSETRON ODT 4 MG TABRAP PO (23:02)
[2025-04-15] MEDS: PANTOPRAZOLE 40 MG TABLET PO (23:02)
[2025-04-15] MEDS: FAMOTIDINE 20 MG TABLET 40 MG PO (23:02)
[2025-04-16 01:06] LABS: Alanine Aminotransferase 21 U/L (10-49); Albumin, Serum 5.1 gm/dL (3.5-5.0); Alkaline Phosphatase 77 U/L (46-116); Anion Gap 10 (7-16); Aspartate Amino Transferase 24 U/L (0-34); BUN/Creatinine Ratio 9 Ratio (12-20); Bilirubin,Direct 0.1 mg/dL (0.0-0.3); Bilirubin,Total 0.4 mg/dL (0.3-1.2); Blood Urea Nitrogen 7 mg/dL (9-23); Calcium 10.4 mg/dL (8.3-10.6); Calcium (Corrected) 10.4 mg/dL (8.5-10.1); Chloride 102 mMol/L (98-107); Creatinine (Component) 0.8 mg/dL (0.6-1.3); Estimated Creatinine Clearance 92.6 mL/min (>60); Globulin 2.5 gm/dL (2.3-3.5); Glucose 95 mg/dL (74-106); Lipase 48 U/L (12-53); Magnesium 2.3 mg/dL (1.6-2.6); Osmolality,Calculated 271 (275-295); Potassium 3.8 mMol/L (3.4-5.1); Sodium 137 mMol/L (136-145); Total Protein 7.6 gm/dL (5.7-8.2); eGFR > 60 See Note
[2025-04-16 01:39] LABS: Amylase 90 U/L (30-118)
--- NOTE | 2025-04-16 01:57 | XR_ITS ---
Examination: Abdomen sonogram, Limited Date and time of exam: April 16, 2025 at 0210 hours INDICATIONS: Right upper abdominal tenderness and nausea vomiting beginning several days ago Technique: Real-time abdi scale transabdominal sonographic images of the upper abdomen obtained. Findings: No visualization gallbladder Common bile duct 10 mm no stones Pancreatic and 2.9 cm Liver 15.5 cm fatty infiltration Normal hepatopedal portal venous flow Patent IVC IMPRESSION: Common bile duct 10 mm no common bile duct stones noted
--- NOTE | 2025-04-16 01:59 | PRELIM_ITS ---
CT scan of the abdomen and pelvis without intravenous contrast (axial sections with sagittal and coronal reformats) April 16, 2025 0021 hours Clinical History: R flank pain. Findings: The lung bases are clear. There is a cyst in the left lobe of the liver, measuring 1 cm. The gallbladder is surgically absent. There is a nonobstructing calculiin the left interpolar calyx, measuring 3 mm. The liver, pancreas, spleen, right kidney and adrenals are unremarkable on this noncontrast study. No evidence of bowel obstruction. The appendix is within normal limits (coronal images [id number]). There is mild mesenteric fat stranding at its root with a few prominent mesenteric lymph nodes. The urinary bladder is unremarkable. A small fat-containing umbilical hernia is present. The uterus is surgically absent. There is no free fluid or free air. Calcific densities are seen in the pelvis, likely representing phleboliths. The osseous structures are unremarkable. Impression: No evidence of renal/ureteric calculus or hydroureteronephrosis. Report Electronically Signed By: Miguel Ángel Thompson 04/16/2025 1:59:35 AM [EST]
--- NOTE | 2025-04-16 03:50 | PRELIM_ITS ---
Gallbladder ultrasound. April 16, 2025 at 0210 hours Clinical history: Right upper quadrant tenderness. Correlated with the prior CT study dated April 16, 2025 Findings: The visualized liver is enlarged with increased echogenicity without mass or ductal dilatation. The gallbladder is surgically absent. The common duct is normal in caliber at 10 mm. The visualized pancreas is unremarkable. Patent main portal vein and inferior vena cava. No free fluid is demonstrated on the submitted images. Impression: Fatty liver. Report Electronically Signed By: Miguel Ángel Thompson 04/16/2025 3:50:00 AM [EST]
== END 2025-04-16 03:35 | disposition home or self-care (01) ==
PROVIDERS: Emergency Provider Emergency Medicine
DX: K25.9 Gastric ulcer, unspecified as acute or chronic, without hemorrhage or perforation (principal)
CPT/HCPCS: 36415; 74176; 76705; 80053; 81001; 81025; 82150; 82248; 83690; 83735; 85025; 99284; Q0162; A9270

== ENCOUNTER 2025-05-18 00:25 | Emergency (ER) | payer MEDICAID, SELFPAY ==
[2025-05-18 00:26] VITALS: BMI 27.4
[2025-05-18 01:16] VITALS: BP 116/77; PULSE 69; RESP 18; TEMP 36.7; O2SAT 99
--- NOTE | 2025-05-18 01:33 | XR_ITS ---
Examination: CT abdomen and pelvis without contrast. Coronal 3-D reconstructions. Sagittal 2-D reconstructions. Date and time of exam:May 18, 2025 0225 hours INDICATIONS: Severe left flank pain nausea vomiting today CTDI: vol (mGy): 9.04 DLP: (mGycm): 484 Technique: Axial images of the abdomen have been obtained, 3 mm slice thickness Intravenous contrast material has not been administered. Low dose protocols were performed. One or more of the following dose reduction techniques were used; automated exposure control, adjustment of the mA and/or KV according to patient size, use of iterative reconstruction technique. Findings: Small benign right lobe liver cyst Absent gallbladder Spleen not enlarged 6 mm 2 mm nonobstructing left renal calculi, no hydronephrosis or ureteral calculi Normal appendix No bowel obstruction Absent uterus No adnexal mass No bladder mass or bladder calculi Osseous structures intact IMPRESSION: Nonobstructing left renal calculi
--- NOTE | 2025-05-18 01:42 | EDNOTE_ITS ---
<Statement entered by Dipti Villarreal MD - 05/18/25 05:13> As co-signing physician, I was present and available for consult prn. I concur with the plan and care as documented by the midlevel provider. ED Back Injury Pain RME/HPI General Chief Complaint: Abdominal Pain Stated Complaint: L FLANK PAIN NV Time Seen by Provider: 05/18/25 01:33 Arrival date/time: 05/18/25 00:25 40F with history of hysterectomy presents to ED with several hours of L flank pain and N/V. On CT from last month, patient had several undescended L kidney stones. Limitations: no limitations Related Data Home Medications ?Medication ?Instructions ?Recorded ?Confirmed conjugated estrogens 0.625 mg 0.625 mg PO QDAY 1 08/01/24 tablet (Premarin) omeprazole 20 mg tablet,delayed 20 mg PO QDAY 12/18/20 08/01/24 release Previous Rx's ?Medication ?Instructions ?Recorded docusate sodium 100 mg capsule 100 mg PO QDAY #30 caps 12/20/20 oxycodone-acetaminophen 10 mg-325 1 tab PO Q8H PRN douglas n #40 tabs 12/21/20 mg tablet (Percocet) albuterol sulfate 90 mcg/actuation 2 puff inhalation Q ID PRN 11/01/21 aerosol inhaler shortness of breath or wheez ing #8.5 grams azithromycin 250 mg tablet See Rx Instructions PO .COM PLEX #6 11/01/21 tabs promethazine 12.5 mg tablet 12.5 mg PO TID PRN nausea and 11/01/21 vomiting #20 tabs famotidine 40 mg tablet 40 mg PO QDAY #30 tabs 10/01 famotidine 40 mg tablet 40 mg PO .bedtime #30 tabs 0 04/16/25 omeprazole 40 mg capsule,delayed 40 mg PO QDAY #30 cap s 04/16/25 release sulfamethoxazole 800 1 tab PO BID 5 days #10 tabs 05/18/25 mg-trimethoprim 160 mg tablet (Bactrim DS) Allergies Allergy/AdvReac Type Severity Reaction Status Date / Time ciprofloxacin Allergy Intermediate Rash Verified 05/18/25 00:29 latex Allergy Mild RASH Verified 05/18/25 00:29 metoclopramide AdvReac Severe ANXIETY, Verified 05/18/25 00:29 PANIC ATTACK cephalexin AdvReac Intermediate SEVERE Verified 05/18/25 00:29 DIARRHEA OMEGAXL Allergy Mild Rash Uncoded 05/18/25 00:29 Review of Systems Review of Systems Systems Reviewed: All systems reviewed, normal except as documented Constitutional Constitutional: Reports system reviewed and no additional complaints, except as documented, Denies fever(s) and Denies headache(s) ENT Ears, Nose, Mouth, and Throat: Denies disequilibrium and Denies headache(s) Cardiovascular Cardiovascular: Reports system reviewed and no additional complaints, except as documented, Denies chest pain and Denies dyspnea Respiratory Respiratory: Reports system reviewed and no additional complaints, except as documented, Denies cough and Denies dyspnea Gastrointestinal Gastrointestinal: Reports system reviewed and no additional complaints, except as documented, Reports as per HPI, Denies abdominal pain, Reports nausea and Reports vomiting Genitourinary Genitourinary: Reports as per HPI and Reports flank pain Neurologic Neurologic: Reports system reviewed and no additional complaints, except as documented, Denies confusion, Denies disequilibrium and Denies headache(s) Psychiatric Psychiatric: Denies confusion Past Medical History Past Medical History NEUROLOGIC: Positive Migraine (INDUCED BY LUPRON SHOTS); Negative Neurological Disorders or Seizures CARDIAC: Positive Cardiac Disorders and Edema (LEFT ANKLE PT HAS BRACE); Negative Congestive Heart Failure, Cellulitis or Varicose Veins RESPIRATORY: Positive Pneumonia (DEVELOP PNUEMONIA POST OP HYSTERECTOMY 2018); Negative Chronic Obstructive Pulmonary Disease (COPD), Tuberculosis, Pulmonary Embolism or Sleep Apnea GASTROINTESTINAL: Positive Gastrointestinal Disorders, Pancreatitis (HX), Gall Bladder Disease (LAP) and Gastroesophageal Reflux Disease (TAKES MED); Negative Hepatitis GENITOURINARY: Positive Genitourinary Disorders and Kidney Stones (HAD ONE PROC); Negative Renal Disease REPRODUCTIVE: Positive Previous Pregnancies (X2) MENOPAUSE AGE: 35 (Patient had total hysterectomy 6 months ago) MUSCULOSKELETAL: Positive Musculoskeletal Disorders, Scoliosis (MILD) and Fractures (LEFT TIBIA FOR THIS PROC (PT FELL 04/2020) HAS BRACE) ENDOCRINE: Positive Endocrine Disorders; Negative Diabetes Mellitus Type 1 or Diabetes Mellitus Type 2 HEMATOLOGIC: Negative Blood Disorders or Clotting Problems OTHER HISTORY: Positive Falls (04/2020 FOR THIS PROC, 10/2020 ER VISIT) and Chicken Pox; Negative Hospitalization, Autoimmune Disease, Shingles, Blood Transfusions, Blood Transfusion Reaction, Anesthesia Reactions, Chemotherapy, Radiation Therapy, MRSA, Measles, Mumps or Cancer Family History FAMILY HISTORY: Positive Family Psychiatric Problems, Family Cardiac Disorders, Family Gastrointestinal Problems and Family Surgery; Negative Family Respiratory Disorders, Family Cancer or Family Anesthesia Reaction Surgical History SURGICAL: Positive Abdominal Surgery, Hysterectomy (KAMAR WITH GISELA SALPINGO) and Section; Negative Cardiac Surgery, Pacemaker, Endocrine Surgery, Ear Surgery, Nephrectomy, Joint Replacement or Neurologic Surgery Social History SMOKING STATUS: Never smoker SECOND HAND EXPOSURE: Yes SUBSTANCE USE: does not use ED Exam General Limitations: Present no limitations General appearance: Present alert and in no apparent distress Head Head exam: Present atraumatic Eye Eye exam: Present normal appearance, PERRL and EOMI ENT ENT exam: Present normal exam, normal oropharynx and mucous membranes moist Neck Neck exam: Present normal inspection, full ROM and trachea midline Chest Chest inspection: Present normal inspection and symmetric chest wall rise Respiratory Respiratory exam: Present normal lung sounds bilaterally Cardiovascular Cardiovascular exam: Present regular rate, normal rhythm and normal heart sounds Abdominal Exam Abdominal exam: Present soft and normal bowel sounds Extremities Exam Extremities exam: Present normal inspection and full ROM Back Exam Back exam: Present normal inspection and full ROM Neurological Exam Neurological exam: Present alert, oriented X3 and CN II-XII intact Psychiatric Psychiatric exam: Present normal affect and normal mood Skin Skin exam: Present warm, dry, intact and normal color Course Quality Measures none Orders Category Date Time Status CT abdomen pelvis wo con Stat Exams 05/18/25 01:33 Taken CBC Stat Lab 05/18/25 01:39 Completed CMP [Comprehensive Metabolic Panel] Stat Lab 05/18/25 01:39 Completed Drug Screen,Urine Stat Lab 05/18/25 02:12 Completed Lipase Stat Lab 05/18/25 01:39 Completed Urinalysis, C/S if Indicated Stat Lab 05/18/25 02:12 Completed Urine Culture Stat Lab 05/18/25 02:12 Received Ketorolac Inj [Toradol Inj] Med 05/18/25 01:34 Discontinued 60 mg IM X1 ONE Ondansetron Odt [Zofran Odt] Med 05/18/25 01:34 Discontinued 4 mg PO X1 ONE Vital Signs Vital signs: Vital Signs Temperature 98.1 F 05/18/25 01:16 Pulse Rate 69 05/18/25 01:16 Respiratory Rate 18 05/18/25 01:16 Blood Pressure 116/77 05/18/25 01:16 Pulse Oximetry (%) 99 05/18/25 01:16 Oxygen Delivery Method Room Air 05/18/25 01:16 O2 at 99% on RA and WNLs Back Pain / Injury MDM Narrative MDM Narrative:: 40F with history of hysterectomy presents to ED with several hours of L flank pain and N/V. On CT from last month, patient had several undescended L kidney stones. Physical exam reveals uncomfortable-appearing female. Patient is afebrile and alert. CT only 3 mm stone seen in L kidney. UA suggests mild UA. No leukocytosis. CMP unremarkable. Possibly passed 6 mm stone from last CT, or just not seen this time around. Patient data External records reviewed:: [facility] previous records Clinical information provided by:: patient Social determinants that could affect healthcare access:: none Patient has the following chronic illnesses:: hysterectomy How is presenting disease/condition affected by chronic disease/condition?: no chronic disease Evaluation data The following diagnostics were reviewed and interpreted by me:: lab results and radiology exam(s) Lab and/or radiology exams considered but not ordered:: ordered Interpretation Summary: above Medications / Prescriptions Medications or Prescriptions considered but not ordered:: ordered Medication administrations:: Medication Administration History Discontinued Medications Ketorolac Tromethamine (Ketorolac Inj 60 Mg/2 Ml Vial) 60 mg IM X1 ONE Stop: 05/18/25 01:35 Last Admin: 05/18/25 01:46 Dose: 60 mg Documented By: ANTONIO Ondansetron HCl (Ondansetron Odt 4 Mg Tabrap) 4 mg PO X1 ONE; Protocol Stop: 05/18/25 01:35 Last Admin: 05/18/25 01:46 Dose: 4 mg Documented By: ANTONIO above Consultations Consultation(s) initiated? (list below): No Diagnosis Differential diagnosis back pain/injury: lumbar radiculopathy, sciatica, strain of lumbar region, renal colic, pyelonephritis, thoracic back pain, AAA, discitis and other (kidney stone, UTI) Most likely diagnosis given after review of the tests above:: UTI Admission Indicated Admission indicated?: not indicated Admission Request Was there a request for admission?: No Disposition Plan Disposition Plan: Discharge Discharge Attestation Discharge Attestation: The patient and all family members were given an opportunity to ask questions and understood the discharge instructions. Discharge instructions specifically effects, indications for sooner follow up or return to the emergency department, and the expected course of current diagnosis. Patient condition: Stable Discharge Plan Plan Patient Disposition: HOME (Self Care) Discharge Disposition comment: Stable Prescriptions/Referrals Prescriptions/Med Rec: New sulfamethoxazole-trimethoprim [Bactrim DS] 800-160 mg tablet 1 tab PO BID 5 Days Qty: 10 0RF No Action Premarin 0.625 mg Tablet 0.625 mg PO QDAY omeprazole 20 mg Tablet,Delayed Release (Dr/Ec) 20 mg PO QDAY docusate sodium 100 mg Capsule 100 mg PO QDAY Qty: 30 0RF oxycodone-acetaminophen [Percocet] 10-325 mg tablet 1 tab PO Q8H MDD 3 PRN (Reason: pain) Qty: 40 0RF azithromycin 250 mg tablet See Rx Instructions .ROUTE .COMPLEX Qty: 6 0RF Rx Instructions: For 250 mg dose pack: take 500 mg today (day 1), then 250 mg for 4 days (days 2-5) albuterol sulfate 90 mcg/actuation HFA aerosol inhaler 2 puff inhalation QID PRN (Reason: shortness of breath or wheezing) Qty: 8.5 0RF promethazine 12.5 mg tablet 12.5 mg PO TID PRN (Reason: nausea and vomiting) Qty: 20 0RF famotidine 40 mg tablet 40 mg PO QDAY Qty: 30 0RF famotidine 40 mg tablet 40 mg PO .bedtime Qty: 30 0RF omeprazole 40 mg capsule,delayed release(DR/EC) 40 mg PO QDAY Qty: 30 0RF Referrals: Rosendo Koch MD [Primary Care Provider] - In 1 week Problem List Clinical Impression: UTI (urinary tract infection) Patient/Caregiver Discharge Instructions Education Materials: ED CYSTITIS Female Adult Additional Instructions: Please follow-up with PCP within 24-48 hours and return immediately if symptoms worsen. Print Language: Rw[place] Stand Alone Forms: Patient Portal Info Letter KIM/CHAUNCEY Supervising Physician KIM/CHAUNCEY Supervising Physician: Dr. Villarreal
[2025-05-18 01:46] LABS: Basophils # (Auto) 0.0 Thou/mm3 (0.0-0.2); Basophils % (Auto) 0 % (0-2.5); Eosinophils # (Auto) 0.0 Thou/mm3 (0.0-0.5); Eosinophils % (Auto) 0 % (0-10); Hematocrit 37.5 % (36.0-46.0); Hemoglobin 12.9 g/dL (12.0-16.0); Immature Granulocytes Auto 0.02 Thou/mm3 (0.00-0.00); Lymphocytes # (Auto) 2.1 Thou/mm3 (1.0-4.8); Lymphocytes % (Auto) 23 % (10-50); Mean Corpuscular HGB Conc 34.4 g/dl (31.0-37.0); Mean Corpuscular Hemoglobin 28.9 pg (25.0-35.0); Mean Corpuscular Volume 84 fL (80-100); Monocytes # (Auto) 0.6 Thou/mm3 (0.0-0.8); Monocytes % (Auto) 6 % (0-12); Neutrophils # (Auto) 6.3 Thou/mm3 (1.8-7.7); Neutrophils % (Auto) 70 % (37-80); Nucleated Red Blood Cell # 0.00 Thou/mm3 (0.00-0.00); Nucleated Red Blood Cell % 0 /100 WBC (0); Platelet Count 273 Thou/mm3 (140-440); RDW Standard Deviation 39.8 fL (36.4-46.3); Red Blood Count 4.47 Miln/mm3 (4.00-5.20); White Blood Count 9.1 Thou/mm3 (3.6-11.0)
[2025-05-18] MEDS: KETOROLAC INJ 60 MG/2 ML VIAL IM (01:46)
[2025-05-18] MEDS: ONDANSETRON ODT 4 MG TABRAP PO (01:46)
[2025-05-18 02:04] LABS: Alanine Aminotransferase 20 U/L (10-49); Albumin, Serum 4.5 gm/dL (3.5-5.0); Albumin/Globulin Ratio 1.6 (1.2-2.2); Alkaline Phosphatase 78 U/L (46-116); Anion Gap 11 (7-16); Aspartate Amino Transferase 20 U/L (0-34); BUN/Creatinine Ratio 9 Ratio (12-20); Bilirubin,Total 0.3 mg/dL (0.3-1.2); Blood Urea Nitrogen 6 mg/dL (9-23); Calcium 9.6 mg/dL (8.3-10.6); Calcium (Corrected) 9.6 mg/dL (8.5-10.1); Carbon Dioxide 25.9 mMol/L (20.0-31.0); Chloride 106 mMol/L (98-107); Creatinine (Component) 0.7 mg/dL (0.6-1.3); Estimated Creatinine Clearance 104.3 mL/min (>60); Globulin 2.8 gm/dL (2.3-3.5); Glucose 99 mg/dL (74-106); Lipase 40 U/L (12-53); Osmolality,Calculated 282 (275-295); Potassium 3.8 mMol/L (3.4-5.1); Sodium 143 mMol/L (136-145); Total Protein 7.3 gm/dL (5.7-8.2); eGFR > 60 See Note
[2025-05-18 02:27] LABS: Collection Type, Urine Clean Catch
[2025-05-18 02:45] LABS: Bacteria,Urine Rare; Bilirubin,Urine Negative (Negative); Blood,Urine Negative (Negative); Clarity,Urine Clear (Clear/Hazy); Color,Urine Yellow (Lt Yel-Yel); Glucose, Urine Negative (Negative); Ketones,Urine Negative (Negative); Leukocyte Esterase,Urine Positive (Negative); Nitrite,Urine Negative (Negative); PH,Urine 6.0 (5.0-7.0); Protein,Urine Negative (Neg - Trace); RBC,Urine 5 /hpf (0-3); Specific Gravity,Urine 1.024 (1.001-1.035); Squamous Epithelial Cell,Urine 4 /hpf (0-5); Urobilinogen,Urine Negative mg/dL (0.0-1.0); WBC,Urine 13 /hpf (0-5)
[2025-05-18 02:46] LABS: Amphetamine/Methamp Scrn,U Negative (Negative); Barbiturate Screen,Urine Negative (Negative); Benzodiazepines Screen,Urine Negative (Negative); Benzoylecgonine Screen, Ur Negative (Negative); Fentanyl Screen,Urine Negative (Negative); Opiate Screen,Urine Negative (Negative); THC Screen,Urine Negative (Negative)
[2025-05-18 02:48] LABS: Culture Indicated,Urine Yes
--- NOTE | 2025-05-18 03:20 | PRELIM_ITS ---
CT scan of the abdomen and pelvis without intravenous contrast (axial sections with sagittal and coronal reformats) May 18, 2025 0225 hours Clinical History: L flank pain. Findings: The lung bases are clear. The stomach is distended with food residue. The gallbladder is surgically absent. There is a nonobstructing calculus in the left kidney, measuring 3 mm. The liver, pancreas, spleen, kidneys and adrenals are unremarkable on this noncontrast study. No evidence of bowel obstruction. There is submucosal fatty infiltration of the entire colon, likely related to prior inflammation. The appendix is not visualized. There is no mesenteric or retroperitoneal adenopathy. The urinary bladder is incompletely distended at the time of the examination. There is no free fluid or free air. Uterus is not visualized. The osseous structures are unremarkable. Impression: No evidence of ureteric calculus or hydroureteronephrosis. Nonobstructing calculus in the left kidney. Report Electronically Signed By: Miguel Ángel Thompson 05/18/2025 3:19:35 AM [EST]
== END 2025-05-18 03:34 | disposition home or self-care (01) ==
PROVIDERS: Physician Assistant; Emergency Provider Emergency Medicine; PCP Family Medicine
DX: N39.0 Urinary tract infection, site not specified (principal); N20.0 Calculus of kidney
CPT/HCPCS: 36415; 74176; 80053; 80307; 81001; 81025; 83690; 85025; 87086; 96372; 99283; J1885; Q0162

== ENCOUNTER 2025-06-11 10:17 | Emergency (ER) | payer MEDICAID, SELFPAY ==
[2025-06-11 10:18] VITALS: BMI 27.3
[2025-06-11 10:28] VITALS: BP 109/74; PULSE 78; RESP 17; TEMP 36.7; O2SAT 97
--- NOTE | 2025-06-11 10:43 | EDNOTE_ITS ---
<Statement entered by Dipti Villarreal MD - 06/26/25 06:26> As co-signing physician, I was present and available for consult prn. I concur with the plan and care as documented by the midlevel provider. ED Eye Problem RME/HPI General Chief complaint: Eye Problems Stated complaint: INFECTION L) EYE Time Seen by Provider: 06/11/25 10:35 Source: patient Arrival date/time: 06/11/25 10:17 40-year-old female with no known medical history presents to the emergency room with a chief complaint of irritation, redness, drainage in her left eye x 1 day Mode of arrival: ambulatory Limitations: no limitations Related Data Home Medications ?Medication ?Instructions ?Recorded ?Confirmed conjugated estrogens 0.625 mg 0.625 mg PO QDAY 1 08/01/24 tablet (Premarin) omeprazole 20 mg tablet,delayed 20 mg PO QDAY 12/18/20 08/01/24 release Previous Rx's ?Medication ?Instructions ?Recorded docusate sodium 100 mg capsule 100 mg PO QDAY #30 caps 12/20/20 oxycodone-acetaminophen 10 mg-325 1 tab PO Q8H PRN douglas n #40 tabs 12/21/20 mg tablet (Percocet) albuterol sulfate 90 mcg/actuation 2 puff inhalation Q ID PRN 11/01/21 aerosol inhaler shortness of breath or wheez ing #8.5 grams azithromycin 250 mg tablet See Rx Instructions PO .COM PLEX #6 11/01/21 tabs promethazine 12.5 mg tablet 12.5 mg PO TID PRN nausea and 11/01/21 vomiting #20 tabs famotidine 40 mg tablet 40 mg PO QDAY #30 tabs 10/01 famotidine 40 mg tablet 40 mg PO .bedtime #30 tabs 0 04/16/25 omeprazole 40 mg capsule,delayed 40 mg PO QDAY #30 cap s 04/16/25 release tobramycin 0.3 % eye drops 2 drp ophthalmic (eye) Q2H #5 mL 06/11/25 Allergies Allergy/AdvReac Type Severity Reaction Status Date / Time ciprofloxacin Allergy Intermediate Rash Verified 06/11/25 10:20 latex Allergy Mild RASH Verified 06/11/25 10:20 metoclopramide AdvReac Severe ANXIETY, Verified 06/11/25 10:20 PANIC ATTACK cephalexin AdvReac Intermediate SEVERE Verified 06/11/25 10:20 DIARRHEA OMEGAXL Allergy Mild Rash Uncoded 06/11/25 10:20 Review of Systems Review of Systems Systems Reviewed: All systems reviewed, normal except as documented Constitutional Constitutional: Reports system reviewed and no additional complaints, except as documented, Denies fatigue, Denies fever(s), Denies headache(s) and Denies weakness Eyes Eyes: Reports system reviewed and no additional complaints, except as documented, Denies blind spots, Denies blurry vision, Denies change in vision, Denies decreased night vision, Denies diplopia, Reports eye discharge, Denies dry eyes, Denies exophthalmos, Denies floaters, Reports irritation, Denies itchy eyes, Denies loss of peripheral vision, Denies loss of vision, Denies other visual disturbances, Denies eye pain, Denies photophobia, Denies requires corrective lenses, Denies seeing flashes, Denies spots in vision and Denies tunnel vision ENT Ears, Nose, Mouth, and Throat: Reports system reviewed and no additional complaints, except as documented, Denies otalgia, Denies headache(s), Denies nasal congestion, Denies throat swelling and Denies vertigo Cardiovascular Cardiovascular: Reports system reviewed and no additional complaints, except as documented, Denies chest pain, Denies dyspnea and Denies dyspnea on exertion Respiratory Respiratory: Reports system reviewed and no additional complaints, except as documented, Denies chest congestion, Denies cough, Denies dyspnea, Denies dyspnea on exertion and Denies wheezing Gastrointestinal Gastrointestinal: Reports system reviewed and no additional complaints, except as documented, Denies abdominal pain, Denies cramping, Denies nausea and Denies vomiting Genitourinary Genitourinary: Reports system reviewed and no additional complaints, except as documented Musculoskeletal Musculoskeletal: Reports system reviewed and no additional complaints, except as documented and Denies back pain Integumentary/Breasts Skin/Breast: Reports system reviewed and no additional complaints, except as documented and Denies wounds Neurologic Neurologic: Reports system reviewed and no additional complaints, except as documented, Denies confusion, Denies headache(s), Denies lack of coordination, Denies loss of vision, Denies vertigo and Denies weakness Psychiatric Psychiatric: Reports system reviewed and no additional complaints, except as documented, Denies anxiety, Denies confusion, Denies depression, Denies paranoia, Denies suicidal ideation and Denies tactile hallucinations Endocrine Endocrine: Reports system reviewed and no additional complaints, except as documented and Denies fatigue Hematologic/Lymphatic Hematologic/Lymphatic: Reports system reviewed and no additional complaints, except as documented and Denies lymphadenopathy Allergic/Immunologic Allergic/Immunologic: Reports system reviewed and no additional complaints, except as documented, Denies itchy eyes, Denies throat swelling, Denies urticaria and Denies wheezing Past Medical History Past Medical History NEUROLOGIC: Positive Migraine (INDUCED BY LUPRON SHOTS); Negative Neurological Disorders or Seizures CARDIAC: Positive Cardiac Disorders and Edema (LEFT ANKLE PT HAS BRACE); Negative Congestive Heart Failure, Cellulitis or Varicose Veins RESPIRATORY: Positive Pneumonia (DEVELOP PNUEMONIA POST OP HYSTERECTOMY 2018); Negative Chronic Obstructive Pulmonary Disease (COPD), Tuberculosis, Pulmonary Embolism or Sleep Apnea GASTROINTESTINAL: Positive Gastrointestinal Disorders, Pancreatitis (HX), Gall Bladder Disease (LAP) and Gastroesophageal Reflux Disease (TAKES MED); Negative Hepatitis GENITOURINARY: Positive Genitourinary Disorders and Kidney Stones (HAD ONE PROC); Negative Renal Disease REPRODUCTIVE: Positive Previous Pregnancies (X2) MENOPAUSE AGE: 35 (Patient had total hysterectomy 6 months ago) MUSCULOSKELETAL: Positive Musculoskeletal Disorders, Scoliosis (MILD) and Fractures (LEFT TIBIA FOR THIS PROC (PT FELL 04/2020) HAS BRACE) ENDOCRINE: Positive Endocrine Disorders; Negative Diabetes Mellitus Type 1 or Diabetes Mellitus Type 2 HEMATOLOGIC: Negative Blood Disorders or Clotting Problems OTHER HISTORY: Positive Falls (04/2020 FOR THIS PROC, 10/2020 ER VISIT) and Chicken Pox; Negative Hospitalization, Autoimmune Disease, Shingles, Blood Transfusions, Blood Transfusion Reaction, Anesthesia Reactions, Chemotherapy, Radiation Therapy, MRSA, Measles, Mumps or Cancer Family History FAMILY HISTORY: Positive Family Psychiatric Problems, Family Cardiac Disorders, Family Gastrointestinal Problems and Family Surgery; Negative Family Respiratory Disorders, Family Cancer or Family Anesthesia Reaction Surgical History SURGICAL: Positive Abdominal Surgery, Hysterectomy (KAMAR WITH GISELA SALPINGO) and Section; Negative Cardiac Surgery, Pacemaker, Endocrine Surgery, Ear Surgery, Nephrecto my, Joint Replacement or Neurologic Surgery Social History SMOKING STATUS: Former smoker SECOND HAND EXPOSURE: Yes SUBSTANCE USE: does not use ED Exam General Limitations: Present no limitations General appearance: Present alert and in no apparent distress Head Head exam: Present atraumatic Eye Eye exam: Present normal appearance, PERRL and EOMI Expanded Eye Exam Sclera/Conjunctival: left: injection and exudate ENT ENT exam: Present normal exam, normal oropharynx and mucous membranes moist Neck Neck exam: Present normal inspection, full ROM and trachea midline Chest Chest inspection: Present normal inspection and symmetric chest wall rise Respiratory Respiratory exam: Present normal lung sounds bilaterally Cardiovascular Cardiovascular exam: Present regular rate, normal rhythm and normal heart sounds Abdominal Exam Abdominal exam: Present soft and normal bowel sounds Extremities Exam Extremities exam: Present normal inspection and full ROM Back Exam Back exam: Present normal inspection and full ROM Neurological Exam Neurological exam: Present alert, oriented X3 and CN II-XII intact Psychiatric Psychiatric exam: Present normal affect and normal mood Skin Skin exam: Present warm, dry, intact and normal color Course Quality Measures none Vital Signs Vital signs: Vital Signs Temperature 98.1 F 06/11/25 10:28 Pulse Rate 78 06/11/25 10:28 Respiratory Rate 17 06/11/25 10:28 Blood Pressure 109/74 06/11/25 10:28 Pulse Oximetry (%) 97 06/11/25 10:28 Oxygen Delivery Method Room Air 06/11/25 10:28 O2 saturation 97% within normal limits Eye MDM Narrative MDM Narrative:: 40-year-old female with no known medical history presents to the emergency room with a chief complaint of irritation, redness, drainage in her left eye x 1 day Patient is hemodynamically stable and in no apparent distress Physical examination shows a left-sided erythemic conjunctive a with exudates on the lower eyelid. Visual acuity test was within normal limits the patient denies any spots in the vision or visual disturbances and states she only has irritation The findings are consistent with bacterial conjunctivitis antibiotics are sent to the patient's pharmacy Patient was discharged and educated to follow-up with primary care provider in the next 24 to 48 hours and return to the emergency room for any evidence of worsening signs or symptoms Patient data External records reviewed:: [facility] previous records Clinical information provided by:: patient Social determinants that could affect healthcare access:: none Patient has the following chronic illnesses:: No chronic illness How is presenting disease/condition affected by chronic disease/condition?: no chronic disease Evaluation data The following diagnostics were reviewed and interpreted by me:: lab results and radiology exam(s) Lab and/or radiology exams considered but not ordered:: Labs and radiology exams considered and ordered Interpretation Summary: N/A Medications / Prescriptions Medications or Prescriptions considered but not ordered:: No medication given Medication administrations:: Rx given Consultations Consultation(s) initiated? (list below): No Diagnosis Eye Problem Differential Diagnosis: corneal abrasion, conjunctivitis, acute iritis, hyphema and corneal ulcer Most likely diagnosis given after review of the tests above:: Bacterial conjunctivitis Admission Indicated Admission indicated?: not indicated Admission Request Was there a request for admission?: No Disposition Plan Disposition Plan: Discharge Discharge Attestation Discharge Attestation: The patient and all family members were given an opportunity to ask questions and understood the discharge instructions. Discharge instructions specifically effects, indications for sooner follow up or return to the emergency department, and the expected course of current diagnosis. Patient condition: Stable Discharge Plan Plan Patient Disposition: HOME (Self Care) Discharge Disposition comment: Stable Prescriptions/Referrals Prescriptions/Med Rec: New tobramycin 0.3 % drops 2 drp ophthalmic (eye) Q2H Qty: 5 0RF No Action Premarin 0.625 mg Tablet 0.625 mg PO QDAY omeprazole 20 mg Tablet,Delayed Release (Dr/Ec) 20 mg PO QDAY docusate sodium 100 mg Capsule 100 mg PO QDAY Qty: 30 0RF oxycodone-acetaminophen [Percocet] 10-325 mg tablet 1 tab PO Q8H MDD 3 PRN (Reason: pain) Qty: 40 0RF azithromycin 250 mg tablet See Rx Instructions .ROUTE .COMPLEX Qty: 6 0RF Rx Instructions: For 250 mg dose pack: take 500 mg today (day 1), then 250 mg for 4 days (days 2-5) albuterol sulfate 90 mcg/actuation HFA aerosol inhaler 2 puff inhalation QID PRN (Reason: shortness of breath or wheezing) Qty: 8.5 0RF promethazine 12.5 mg tablet 12.5 mg PO TID PRN (Reason: nausea and vomiting) Qty: 20 0RF famotidine 40 mg tablet 40 mg PO QDAY Qty: 30 0RF famotidine 40 mg tablet 40 mg PO .bedtime Qty: 30 0RF omeprazole 40 mg capsule,delayed release(DR/EC) 40 mg PO QDAY Qty: 30 0RF Problem List Clinical Impression: Conjunctivitis Patient/Caregiver Discharge Instructions Education Materials: What Is Conjunctivitis?, ED Conjunctivitis, Bacterial Additional Instructions: Please follow-up with your primary care provider in the next 24 to 48 hours Antibiotics are sent to your pharmacy please pick them up and take them as indicated For any evidence of worsening signs or symptoms return to the emergency room immediately Print Language: Kyrgyz Stand Alone Forms: Debbie Award Info., Patient Portal Info Letter PA/[employer] Supervising Physician PA/[employer] Supervising Physician: Dr. VILLARREAL
== END 2025-06-11 10:44 | disposition home or self-care (01) ==
LOC: SERX 10:50
PROVIDERS: Emergency Provider Emergency Medicine; PCP Family Medicine
DX: H10.9 Unspecified conjunctivitis (principal); Z88.1 Allergy status to other antibiotic agents; Z91.040 Latex allergy status; Z88.8 Allergy status to other drugs, medicaments and biological substances
CPT/HCPCS: 99282

== ENCOUNTER 2025-07-28 10:13 | Emergency (ER) | payer MEDICAID, SELFPAY ==
[2025-07-28 10:13] VITALS: BMI 27.3
[2025-07-28 10:27] VITALS: BP 119/76; PULSE 80; RESP 18; TEMP 37; O2SAT 100
--- NOTE | 2025-07-28 10:31 | EKG_ITS ---
[facility] Test Date: 2025-07-28 Pat Name: GUIDO BENNETT Department: Room: - Gender: Female [employer]: : 1985 Requested By: Modesto Porter Order Number: [id number] Reading MD: Modesto Porter Measurements Intervals [place] Rate: 69 P: 66 [place]: 131 QRS: 79 QRSD: 87 T: 44 QT: 378 QTc: 407 Interpretive Statements SINUS RHYTHM Compared to ECG 11/05/2024 20:07:11 No significant changes /store/S0/[id number].pdf
--- NOTE | 2025-07-28 10:32 | PD.EDRME ---
Rapid Medical Screening Exam RME Arrival date/time: 07/28/25 10:13 40-year-old female with a history of mitral valve prolapse presents to the emergency room with a chief complaint of shortness of breath and dizziness x 1 day. Patient also states that she has had multiple elevated blood pressure readings this morning I have greeted and performed a focused initial assessment of this patient. A comprehensive ED assessment and evaluation of the patient, analysis of all test results, and completion of the medical decision making process will be conducted by additional ED providers. Chief Complaint: Shortness of Breath/Dyspnea Time Seen by Provider: 07/28/25 10:20 Vital signs: Vital Signs Temperature 98.6 F 07/28/25 10:27 Pulse Rate 80 07/28/25 10:27 Respiratory Rate 18 07/28/25 10:27 Blood Pressure 119/76 07/28/25 10:27 Pulse Oximetry (%) 100 07/28/25 10:27 Oxygen Delivery Method Room Air 07/28/25 10:27 Vital signs reviewed by provider: Yes
[2025-07-28 10:56] LABS: Basophils # (Auto) 0.0 Thou/mm3 (0.0-0.2); Basophils % (Auto) 0 % (0-2.5); Eosinophils # (Auto) 0.0 Thou/mm3 (0.0-0.5); Eosinophils % (Auto) 0 % (0-10); Hematocrit 40.9 % (36.0-46.0); Hemoglobin 13.5 g/dL (12.0-16.0); Immature Granulocytes Auto 0.02 Thou/mm3 (0.00-0.00); Lymphocytes # (Auto) 2.1 Thou/mm3 (1.0-4.8); Lymphocytes % (Auto) 26 % (10-50); Mean Corpuscular HGB Conc 33.0 g/dl (31.0-37.0); Mean Corpuscular Hemoglobin 29.0 pg (25.0-35.0); Mean Corpuscular Volume 88 fL (80-100); Monocytes # (Auto) 0.5 Thou/mm3 (0.0-0.8); Monocytes % (Auto) 6 % (0-12); Neutrophils # (Auto) 5.5 Thou/mm3 (1.8-7.7); Neutrophils % (Auto) 68 % (37-80); Nucleated Red Blood Cell # 0.00 Thou/mm3 (0.00-0.00); Nucleated Red Blood Cell % 0 /100 WBC (0); Platelet Count 319 Thou/mm3 (140-440); RDW Standard Deviation 41.2 fL (36.4-46.3); Red Blood Count 4.66 Miln/mm3 (4.00-5.20); White Blood Count 8.2 Thou/mm3 (3.6-11.0)
[2025-07-28 11:11] LABS: INR 1.0 (0.9-1.3); Partial Thromboplastin Time 30.5 Seconds (22.0-36.0); Prothrombin Time 10.7 Seconds (9.0-12.2)
[2025-07-28 11:12] LABS: Collection Type, Urine Clean Catch
[2025-07-28 11:14] LABS: B-Type Natriuretic Peptide 23 pg/mL (0-100)
[2025-07-28 11:16] LABS: Alanine Aminotransferase 23 U/L (10-49); Albumin, Serum 4.7 gm/dL (3.5-5.0); Albumin/Globulin Ratio 1.9 (1.2-2.2); Alkaline Phosphatase 80 U/L (46-116); Anion Gap 10 (7-16); Aspartate Amino Transferase 23 U/L (0-34); BUN/Creatinine Ratio 8 Ratio (12-20); Bilirubin,Total 0.4 mg/dL (0.3-1.2); Blood Urea Nitrogen 6 mg/dL (9-23); Calcium 9.9 mg/dL (8.3-10.6); Calcium (Corrected) 9.9 mg/dL (8.5-10.1); Carbon Dioxide 26.2 mMol/L (20.0-31.0); Chloride 105 mMol/L (98-107); Creatinine (Component) 0.8 mg/dL (0.6-1.3); Estimated Creatinine Clearance 91.0 mL/min (>60); Globulin 2.5 gm/dL (2.3-3.5); Glucose 98 mg/dL (74-106); Magnesium 2.2 mg/dL (1.6-2.6); Osmolality,Calculated 278 (275-295); Potassium 4.2 mMol/L (3.4-5.1); Sodium 141 mMol/L (136-145); Total Protein 7.2 gm/dL (5.7-8.2); Troponin I < 0.002 ng/mL (0.0-0.045); eGFR > 60 See Note
[2025-07-28 11:17] LABS: Bilirubin,Urine Negative (Negative); Blood,Urine Negative (Negative); Clarity,Urine Clear (Clear/Hazy); Color,Urine Yellow (Lt Yel-Yel); Culture Indicated,Urine Not Indicated; Glucose, Urine Negative (Negative); Ketones,Urine Negative (Negative); Leukocyte Esterase,Urine Positive (Negative); Nitrite,Urine Negative (Negative); PH,Urine 6.0 (5.0-7.0); Protein,Urine Negative (Neg - Trace); RBC,Urine 4 /hpf (0-3); Specific Gravity,Urine 1.017 (1.001-1.035); Squamous Epithelial Cell,Urine 1 /hpf (0-5); Urobilinogen,Urine Negative mg/dL (0.0-1.0); WBC,Urine 2 /hpf (0-5)
[2025-07-28 11:27] LABS: Amphetamine/Methamp Scrn,U Negative (Negative); Barbiturate Screen,Urine Negative (Negative); Benzodiazepines Screen,Urine Negative (Negative); Benzoylecgonine Screen, Ur Negative (Negative); Fentanyl Screen,Urine Negative (Negative); Opiate Screen,Urine Negative (Negative); THC Screen,Urine Negative (Negative)
--- NOTE | 2025-07-28 13:46 | EDNOTE_ITS ---
ED Chest Pain RME/HPI General Chief Complaint: Shortness of Breath/Dyspnea Stated Complaint: C/O HIGH BLOOD PRESSURE, SOB, DIZZY Time Seen by Provider: 07/28/25 10:20 Source: patient Arrival date/time: 07/28/25 10:13 40-year-old female with a history of mitral valve prolapse presents to the emergency room with a chief complaint of shortness of breath and dizziness x 1 day. Patient also states that she has had multiple elevated blood pressure readings this morning Mode of arrival: ambulatory Limitations: no limitations RME / HPI RME / HPI narrative: 07/28/25 10:13 I have greeted and performed a focused initial assessment of this patient. A comprehensive ED assessment and evaluation of the patient, analysis of all test results, and completion of the medical decision making process will be conducted by additional ED providers. Related Data Home Medications ?Medication ?Instructions ?Recorded ?Confirmed conjugated estrogens 0.625 mg 0.625 mg PO QDAY 1 08/01/24 tablet (Premarin) omeprazole 20 mg tablet,delayed 20 mg PO QDAY 12/18/20 08/01/24 release Previous Rx's ?Medication ?Instructions ?Recorded docusate sodium 100 mg capsule 100 mg PO QDAY #30 caps 12/20/20 oxycodone-acetaminophen 10 mg-325 1 tab PO Q8H PRN douglas n #40 tabs 12/21/20 mg tablet (Percocet) albuterol sulfate 90 mcg/actuation 2 puff inhalation Q ID PRN 11/01/21 aerosol inhaler shortness of breath or wheez ing #8.5 grams azithromycin 250 mg tablet See Rx Instructions PO .COM PLEX #6 11/01/21 tabs promethazine 12.5 mg tablet 12.5 mg PO TID PRN nausea and 11/01/21 vomiting #20 tabs famotidine 40 mg tablet 40 mg PO QDAY #30 tabs 10/01 famotidine 40 mg tablet 40 mg PO .bedtime #30 tabs 0 04/16/25 omeprazole 40 mg capsule,delayed 40 mg PO QDAY #30 cap s 04/16/25 release tobramycin 0.3 % eye drops 2 drp ophthalmic (eye) Q2H #5 mL 06/11/25 Allergies Allergy/AdvReac Type Severity Reaction Status Date / Time ciprofloxacin Allergy Intermediate Rash Verified 07/28/25 10:16 latex Allergy Mild RASH Verified 07/28/25 10:16 metoclopramide AdvReac Severe ANXIETY, Verified 07/28/25 10:16 PANIC ATTACK cephalexin AdvReac Intermediate SEVERE Verified 07/28/25 10:16 DIARRHEA OMEGAXL Allergy Mild Rash Uncoded 06/11/25 10:20 Review of Systems Review of Systems Systems Reviewed: All systems reviewed, normal except as documented Constitutional Constitutional: Reports system reviewed and no additional complaints, except as documented, Denies fatigue, Denies fever(s), Denies headache(s) and Denies weakness Eyes Eyes: Reports system reviewed and no additional complaints, except as documented, Denies blurry vision and Denies change in vision ENT Ears, Nose, Mouth, and Throat: Reports system reviewed and no additional complai nts, except as documented, Denies otalgia, Denies headache(s), Denies nasal congestion, Denies throat swelling and Denies vertigo Cardiovascular Cardiovascular: Reports system reviewed and no additional complaints, except as documented, Reports chest pain, Denies dyspnea and Denies dyspnea on exertion Respiratory Respiratory: Reports system reviewed and no additional complaints, except as documented, Denies chest congestion, Denies cough, Denies dyspnea, Denies dyspnea on exertion and Denies wheezing Gastrointestinal Gastrointestinal: Reports system reviewed and no additional complaints, except as documented, Denies abdominal pain, Denies cramping, Denies nausea and Denies vomiting Genitourinary Genitourinary: Reports system reviewed and no additional complaints, except as documented Musculoskeletal Musculoskeletal: Reports system reviewed and no additional complaints, except as documented and Denies back pain Integumentary/Breasts Skin/Breast: Reports system reviewed and no additional complaints, except as documented and Denies wounds Neurologic Neurologic: Reports system reviewed and no additional complaints, except as documented, Denies confusion, Denies headache(s), Denies lack of coordination, Denies vertigo and Denies weakness Psychiatric Psychiatric: Reports system reviewed and no additional complaints, except as documented, Denies anxiety, Denies confusion, Denies depression, Denies paranoia, Denies suicidal ideation and Denies tactile hallucinations Endocrine Endocrine: Reports system reviewed and no additional complaints, except as documented and Denies fatigue Hematologic/Lymphatic Hematologic/Lymphatic: Reports system reviewed and no additional complaints, except as documented and Denies lymphadenopathy Allergic/Immunologic Allergic/Immunologic: Reports system reviewed and no additional complaints, except as documented, Denies throat swelling, Denies urticaria and Denies wheezing Past Medical History Past Medical History NEUROLOGIC: Positive Migraine (INDUCED BY LUPRON SHOTS); Negative Neurological Disorders or Seizures CARDIAC: Positive Cardiac Disorders and Edema (LEFT ANKLE PT HAS BRACE); Negative Congestive Heart Failure, Cellulitis or Varicose Veins RESPIRATORY: Positive Pneumonia (DEVELOP PNUEMONIA POST OP HYSTERECTOMY 2018); Negative Chronic Obstructive Pulmonary Disease (COPD), Tuberculosis, Pulmonary Embolism or Sleep Apnea GASTROINTESTINAL: Positive Gastrointestinal Disorders, Pancreatitis (HX), Gall Bladder Disease (LAP) and Gastroesophageal Reflux Disease (TAKES MED); Negative Hepatitis GENITOURINARY: Positive Genitourinary Disorders and Kidney Stones (HAD ONE PROC); Negative Renal Disease REPRODUCTIVE: Positive Previous Pregnancies (X2) MENOPAUSE AGE: 35 (Patient had total hysterectomy 6 months ago) MUSCULOSKELETAL: Positive Musculoskeletal Disorders, Scoliosis (MILD) and Fractures (LEFT TIBIA FOR THIS PROC (PT FELL 04/2020) HAS BRACE) ENDOCRINE: Positive Endocrine Disorders; Negative Diabetes Mellitus Type 1 or Diabetes Mellitus Type 2 HEMATOLOGIC: Negative Blood Disorders or Clotting Problems OTHER HISTORY: Positive Falls (04/2020 FOR THIS PROC, 10/2020 ER VISIT) and Chicken Pox; Negative Hospitalization, Autoimmune Disease, Shingles, Blood Transfusions, Blood Transfusion Reaction, Anesthesia Reactions, Chemotherapy, Radiation Therapy, MRSA, Measles, Mumps or Cancer Family History FAMILY HISTORY: Positive Family Psychiatric Problems, Family Cardiac Disorders, Family Gastrointestinal Problems and Family Surgery; Negative Family Respiratory Disorders, Family Cancer or Family Anesthesia Reac tion Surgical History SURGICAL: Positive Abdominal Surgery, Hysterectomy (KAMAR WITH GISELA SALPINGO) and Section; Negative Cardiac Surgery, Pacemaker, Endocrine Surgery, Ear Surgery, Nephrectomy, Joint Replacement or Neurologic Surgery Social History SMOKING STATUS: Former smoker SECOND HAND EXPOSURE: Yes SUBSTANCE USE: does not use ED Exam General Limitations: Present no limitations General appearance: Present alert and in no apparent distress Head Head exam: Present atraumatic Eye Eye exam: Present normal appearance, PERRL and EOMI ENT ENT exam: Present normal exam, normal oropharynx and mucous membranes moist Neck Neck exam: Present normal inspection, full ROM and trachea midline Chest Chest inspection: Present normal inspection and symmetric chest wall rise Respiratory Respiratory exam: Present normal lung sounds bilaterally; Absent respiratory distress, wheezes, stridor, accessory muscle use or prolonged expiratory phase Cardiovascular Cardiovascular exam: Present regular rate, normal rhythm, normal heart sounds, +S1 and +S2; Absent tachycardia Abdominal Exam Abdominal exam: Present soft and normal bowel sounds Extremities Exam Extremities exam: Present normal inspection and full ROM Back Exam Back exam: Present normal inspection and full ROM Neurological Exam Neurological exam: Present alert, oriented X3 and CN II-XII intact Psychiatric Psychiatric exam: Present normal affect and normal mood Skin Skin exam: Present warm, dry, intact and normal color Course Quality Measures none Orders Category Date Time Status EKG (ED ONLY) *Do not use* NOW Care 07/28/25 10:31 Completed EKG (ED Only) Stat Exams 07/28/25 10:31 Draft B-Type Natriuretic Peptide Stat Lab 07/28/25 10:45 Completed CBC Stat Lab 07/28/25 10:45 Completed Comprehensive Metabolic Panel Stat Lab 07/28/25 10:45 Completed Drug Screen,Urine Stat Lab 07/28/25 11:03 Completed Magnesium Stat Lab 07/28/25 10:45 Completed Partial Thromboplastin Time Stat Lab 07/28/25 10:45 Completed Prothrombin Time with INR Stat Lab 07/28/25 10:45 Completed Troponin I Stat Lab 07/28/25 10:45 Completed Urinalysis, C/S if Indicated Stat Lab 07/28/25 11:03 Completed Vital Signs Vital signs: Vital Signs Temperature 98.6 F 07/28/25 10:27 Pulse Rate 80 07/28/25 10:27 Respiratory Rate 18 07/28/25 10:27 Blood Pressure 119/76 07/28/25 10:27 Pulse Oximetry (%) 100 07/28/25 10:27 Oxygen Delivery Method Room Air 07/28/25 10:27 Chest Pain MDM Narrative MDM Narrative:: 40-year-old female with a history of mitral valve prolapse presents to the emergency room with a chief complaint of shortness of breath and dizziness x 1 day. Patient also states that she has had multiple elevated blood pressure readings this morning Patient is hemodynamically stable and in no apparent distress Physical examination shows clear bilateral lung sounds there is no wheezing str idor or any abnormal breath sound. Patient states she was at her work when they sent her home due to multiple elevated blood pressure readings. During initial presentation the patient's blood pressure is at 119/76. The patient has a strong and regular rhythm EKG shows normal sinus rhythm at 66 bpm. Heart score is 1. Patient was discharged and educated to follow-up with primary care provider in the next 24 to 48 hours and return to the emergency room for any evidence of worsening signs or symptoms Patient data External records reviewed:: [facility] previous records Clinical information provided by:: patient Social determinants that could affect healthcare access:: none Patient has the following chronic illnesses:: No chronic illness How is presenting disease/condition affected by chronic disease/condition?: no chronic disease Evaluation data The following diagnostics were reviewed and interpreted by me:: lab results and radiology exam(s) Lab and/or radiology exams considered but not ordered:: Labs and radiology exams considered and ordered Interpretation Summary: N/A Medications / Prescriptions Medications or Prescriptions considered but not ordered:: No medication to Medication administrations:: No medication given Consultations Consultation(s) initiated? (list below): No Diagnosis Chest Pain Differential Diagnosis: stable angina, unstable angina pectoris, atypical chest pain, st elevation myocardial infarction, costochondritis and chest pain Most likely diagnosis given after review of the tests above:: Chest pain Admission Indicated Admission indicated?: not indicated Admission Request Was there a request for admission?: No Disposition Plan Disposition Plan: Discharge Discharge Attestation Discharge Attestation: The patient and all family members were given an opportunity to ask questions and understood the discharge instructions. Discharge instructions specifically effects, indications for sooner follow up or return to the emergency department, and the expected course of current diagnosis. Patient condition: Stable Discharge Plan Plan Patient Disposition: HOME (Self Care) Discharge Disposition comment: Stable Prescriptions/Referrals Prescriptions/Med Rec: No Action Premarin 0.625 mg Tablet 0.625 mg PO QDAY omeprazole 20 mg Tablet,Delayed Release (Dr/Ec) 20 mg PO QDAY docusate sodium 100 mg Capsule 100 mg PO QDAY Qty: 30 0RF oxycodone-acetaminophen [Percocet] 10-325 mg tablet 1 tab PO Q8H MDD 3 PRN (Reason: pain) Qty: 40 0RF azithromycin 250 mg tablet See Rx Instructions .ROUTE .COMPLEX Qty: 6 0RF Rx Instructions: For 250 mg dose pack: take 500 mg today (day 1), then 250 mg for 4 days (days 2-5) albuterol sulfate 90 mcg/actuation HFA aerosol inhaler 2 puff inhalation QID PRN (Reason: shortness of breath or wheezing) Qty: 8.5 0RF promethazine 12.5 mg tablet 12.5 mg PO TID PRN (Reason: nausea and vomiting) Qty: 20 0RF famotidine 40 mg tablet 40 mg PO QDAY Qty: 30 0RF famotidine 40 mg tablet 40 mg PO .bedtime Qty: 30 0RF omeprazole 40 mg capsule,delayed release(DR/EC) 40 mg PO QDAY Qty: 30 0RF tobramycin 0.3 % drops 2 drp ophthalmic (eye) Q2H Qty: 5 0RF Referrals: Rosendo Koch MD [Primary Care Provider, Family Practice] - In 1 week Problem List Clinical Impression: Chest pain Patient/Caregiver Discharge Instructions Education Materials: ED Chest Pain, Noncardiac Additional Instructions: Please follow-up with your primary care provider in the next 24 to 48 hours Your cardiac examination was within normal limits. Your EKG was within normal limits. For any evidence of worsening signs or symptoms return to the emergency room immediately Print Language: Pashto Stand Alone Forms: Debbie Award Info., Work/School Release, Patient Portal Info Letter PA/FINANCIAL AID DIRECTOR Supervising Physician KIM/CHAUNCEY Supervising Physician: Dr. Garcia
== END 2025-07-28 14:06 | disposition home or self-care (01) ==
PROVIDERS: Nurse Practitioner Family; Emergency Provider Family Medicine; PCP Family Medicine
DX: R07.9 Chest pain, unspecified (principal); R42 Dizziness and giddiness; R06.02 Shortness of breath; R03.0 Elevated blood-pressure reading, without diagnosis of hypertension; I34.1 Nonrheumatic mitral (valve) prolapse
CPT/HCPCS: 36415; 80053; 80307; 81001; 83735; 83880; 84484; 85025; 85610; 85730; 93005; 99283

== ENCOUNTER 2025-08-15 13:56 | Emergency (ER) | payer MEDICAID, SELFPAY ==
[2025-08-15 13:58] VITALS: BMI 28.5
[2025-08-15 14:12] VITALS: BP 118/80; PULSE 73; RESP 16; TEMP 36.7; O2SAT 97
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
== END 2025-08-15 16:04 | disposition home or self-care (01) ==
PROVIDERS: Emergency Provider Emergency Medicine; PCP Family Medicine
DX: M25.511 Pain in right shoulder (principal); M54.2 Cervicalgia; V89.2XXA Person injured in unspecified motor-vehicle accident, traffic, initial encounter; Y92.410 Unspecified street and highway as the place of occurrence of the external cause; Z95.0 Presence of cardiac pacemaker
CPT/HCPCS: 70450; 72125; 73030; 99282

== ENCOUNTER 2025-10-02 22:27 | Emergency (ER) | payer MEDICAID, SELFPAY ==
[2025-10-02 22:28] VITALS: BMI 26.6
[2025-10-02 23:17] VITALS: BP 119/75; PULSE 82; RESP 16; TEMP 36.6; O2SAT 100
--- NOTE | 2025-10-02 23:26 | XR_ITS ---
Examination: CT abdomen and pelvis without contrast. Coronal 3-D reconstructions. Sagittal 2-D reconstructions. Date and time of exam: October 02, 2025, 1144 hours INDICATIONS: Right upper abdominal pain nausea vomiting beginning 3 hours ago, history kidney stone May 18, 2025 exam CTDI: vol (mGy): 8.38 DLP: (mGycm): 425 Technique: Axial images of the abdomen have been obtained, 3 mm slice thickness Intravenous contrast material has not been administered. Low dose protocols were performed. One or more of the following dose reduction techniques were used; automated exposure control, adjustment of the mA and/or KV according to patient size, use of iterative reconstruction technique. Findings: Small benign liver cyst Absent gallbladder No splenic or pancreatic mass Normal adrenal glands 4 mm 3 mm left renal calculi, no hydronephrosis or ureteral calculi Aorta normal size Normal appendix No bowel obstruction Scattered colonic diverticulosis Absent uterus No pelvic mass Bladder intact Moderate disc narrowing L5-S1 IMPRESSION: Left renal calculi, no ureteral calculi or hydronephrosis Normal appendix Scattered colonic diverticulosis No bladder mass or bladder calculi
--- NOTE | 2025-10-02 23:26 | PD.EDRME ---
Rapid Medical Screening Exam RME Arrival date/time: 10/02/25 22:27 This is a case of 40-year-old female with with history of cholecystectomy came in in the emergency room due to a right sided abdominal pain radiating to the right flank with nausea vomiting today worsening of the symptoms this patient decided to sought consult here in the emergency room Chief Complaint: Abdominal Pain Time Seen by Provider: 10/02/25 22:28 Vital signs: Vital Signs Temperature 97.8 F 10/02/25 23:17 Pulse Rate 82 10/02/25 23:17 Respiratory Rate 16 10/02/25 23:17 Blood Pressure 119/75 10/02/25 23:17 Pulse Oximetry (%) 100 10/02/25 23:17 Oxygen Delivery Method Room Air 10/02/25 23:17 Exam: Moderate tenderness in the right upper quadrant no guarding no rebound no rigidity Clinical Impression: Abdominal pain
[2025-10-02 23:48] LABS: Basophils # (Auto) 0.0 Thou/mm3 (0.0-0.2); Basophils % (Auto) 0 % (0-2.5); Eosinophils # (Auto) 0.1 Thou/mm3 (0.0-0.5); Eosinophils % (Auto) 1 % (0-10); Hematocrit 40.6 % (36.0-46.0); Hemoglobin 13.6 g/dL (12.0-16.0); Immature Granulocytes Auto 0.03 Thou/mm3 (0.00-0.00); Lymphocytes # (Auto) 2.8 Thou/mm3 (1.0-4.8); Lymphocytes % (Auto) 27 % (10-50); Mean Corpuscular HGB Conc 33.5 g/dl (31.0-37.0); Mean Corpuscular Hemoglobin 28.9 pg (25.0-35.0); Mean Corpuscular Volume 86 fL (80-100); Monocytes # (Auto) 0.6 Thou/mm3 (0.0-0.8); Monocytes % (Auto) 6 % (0-12); Neutrophils # (Auto) 6.9 Thou/mm3 (1.8-7.7); Neutrophils % (Auto) 66 % (37-80); Nucleated Red Blood Cell # 0.00 Thou/mm3 (0.00-0.00); Nucleated Red Blood Cell % 0 /100 WBC (0); Platelet Count 303 Thou/mm3 (140-440); RDW Standard Deviation 40.0 fL (36.4-46.3); Red Blood Count 4.70 Miln/mm3 (4.00-5.20); White Blood Count 10.5 Thou/mm3 (3.6-11.0)
[2025-10-02] MEDS: ONDANSETRON ODT 4 MG TABRAP PO (23:51)
[2025-10-02] MEDS: MORPHINE SULF INJ 4 MG/ML VIAL IM (23:52)
[2025-10-03 00:07] LABS: Alanine Aminotransferase 22 U/L (10-49); Albumin, Serum 4.7 gm/dL (3.5-5.0); Albumin/Globulin Ratio 1.5 (1.2-2.2); Alkaline Phosphatase 82 U/L (46-116); Anion Gap 11 (7-16); Aspartate Amino Transferase 23 U/L (0-34); BUN/Creatinine Ratio 10 Ratio (12-20); Bilirubin,Total 0.3 mg/dL (0.3-1.2); Blood Urea Nitrogen 7 mg/dL (9-23); Calcium 9.4 mg/dL (8.3-10.6); Calcium (Corrected) 9.4 mg/dL (8.5-10.1); Carbon Dioxide 27.4 mMol/L (20.0-31.0); Chloride 106 mMol/L (98-107); Creatinine (Component) 0.7 mg/dL (0.6-1.3); Estimated Creatinine Clearance 102.8 mL/min (>60); Globulin 3.1 gm/dL (2.3-3.5); Glucose 100 mg/dL (74-106); Lipase 44 U/L (12-53); Osmolality,Calculated 284 (275-295); Potassium 3.6 mMol/L (3.4-5.1); Sodium 144 mMol/L (136-145); Total Protein 7.8 gm/dL (5.7-8.2); eGFR > 60 See Note
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
--- NOTE | 2025-10-03 01:09 | XR_ITS ---
EXAMINATION: PA chest single view TECHNIQUE: Upright PA chest single view Date and time: October 03, 2025, 0111 hours INDICATIONS: Sudden onset epigastric chest pain today FINDINGS: Normal heart size Lungs are clear. The Shad structures are intact IMPRESSION: No active disease
[2025-10-03] MEDS: KETOROLAC INJ 30 MG/ML VIAL IM (02:45)
[2025-10-03] MEDS: MG HYD/AL HYD/SIME (Maalox Reg) SUSP 30 ML UDC PO (02:46)
[2025-10-03] MEDS: LIDOCAINE VISCOUS 2% 15 ML UDC PO (02:46)
== END 2025-10-03 03:50 | disposition home or self-care (01) ==
PROVIDERS: Nurse Practitioner Family; Emergency Provider Emergency Medicine; PCP Family Medicine
DX: K57.30 Diverticulosis of large intestine without perforation or abscess without bleeding (principal); N20.0 Calculus of kidney; R07.89 Other chest pain
CPT/HCPCS: 36415; 71045; 74176; 80053; 81001; 81025; 83690; 85025; 96372; 99283; J1885; J2270; J3490; Q0162; A9270

== ENCOUNTER 2025-10-14 14:28 | Emergency (ER) | payer MEDICAID, SELFPAY ==
[2025-10-14 16:09] VITALS: BP 122/79; PULSE 114; RESP 20; TEMP 37.7; O2SAT 98; BMI 25.7
--- NOTE | 2025-10-14 16:54 | XR_ITS ---
EXAMINATION: PA chest single view TECHNIQUE: 1. Upright PA chest single view Date and time: October 14, 2025, 1729 hours INDICATIONS: Fever coughing beginning today FINDINGS: Normal heart size Lungs are clear. Osseous structures are intact IMPRESSION: No active disease
--- NOTE | 2025-10-14 16:56 | PD.EDRME ---
Rapid Medical Screening Exam E Arrival date/time: 10/14/25 14:28 This is a 40-year-old female that comes into the emergency room complaint of shortness of breath, fever, cough, headache that started today. Patient states she was sick with an upper respiratory infection for the past 2 weeks and she felt better yesterday and then today she started feeling sick again. 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 Patient states she was negative previously. Patient denies any past medical history. I have greeted and performed a focused initial assessment of this patient. Initial appropriate labs ordered at this time. A comprehensive ED assessment and evaluation of the patient and analysis of all test and completion of medical decision making process will be conducted by additional ED provider. Chief Complaint: Shortness of Breath/Dyspnea Time Seen by Provider: 10/14/25 14:32 Vital signs: Vital Signs Temperature 99.9 F 10/14/25 16:09 Pulse Rate 114 H 10/14/25 16:09 Respiratory Rate 20 10/14/25 16:09 Blood Pressure 122/79 10/14/25 16:09 Pulse Oximetry (%) 98 10/14/25 16:09 Oxygen Delivery Method Room Air 10/14/25 16:09 Exam: Alert and oriented, breathing even and unlabored, skin warm and dry Clinical Impression: Cough fever
[2025-10-14] MEDS: PROMETHAZINE/DM SYRUP 5 ML DOSE PO (17:19)
[2025-10-14] MEDS: IBUPROFEN TAB 400 MG TABLET 800 MG PO (17:19)
--- NOTE | 2025-10-14 18:36 | EDNOTE_ITS ---
ED SOB =RME/HPI General Chief Complaint: Shortness of Breath/Dyspnea Stated Complaint: SOB, fever, cough, IRBY Time Seen by Provider: 10/14/25 14:32 Arrival date/time: 10/14/25 14:28 RME / HPI RME / HPI Narrative: 10/14/25 14:28 This is a 40-year-old female that comes into the emergency room complaint of shortness of breath, fever, cough, headache that started today. Patient states she was sick with an upper respiratory infection for the past 2 weeks and she felt better yesterday and then today she started feeling sick again. 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 Patient states she was negative previously. Patient denies any past medical history. I have greeted and performed a focused initial assessment of this patient. Inrod tial appropriate labs ordered at this time. A comprehensive ED assessment and evaluation of the patient and analysis of all test and completion of medical decision making process will be conducted by additional ED provider. 40-year-old female with minimal past medical history presents with a 2-week history of fever cough headache body aches shortness of breath and fatigue. Exam: Alert and oriented, breathing even and unlabored, skin warm and dry Impression: Cough fever Related Data Home Medications ?Medication ?Instructions ?Recorded ?Confirmed conjugated estrogens 0.625 mg 0.625 mg PO QDAY 1 08/01/24 tablet (Premarin) omeprazole 20 mg tablet,delayed 20 mg PO QDAY 12/18/20 08/01/24 release Previous Rx's ?Medication ?Instructions ?Recorded docusate sodium 100 mg capsule 100 mg PO QDAY #30 caps 12/20/20 oxycodone-acetaminophen 10 mg-325 1 tab PO Q8H PRN douglas n #40 tabs 12/21/20 mg tablet (Percocet) albuterol sulfate 90 mcg/actuation 2 puff inhalation Q ID PRN 11/01/21 aerosol inhaler shortness of breath or wheez ing #8.5 grams azithromycin 250 mg tablet See Rx Instructions PO .COM PLEX #6 11/01/21 tabs promethazine 12.5 mg tablet 12.5 mg PO TID PRN nausea and 11/01/21 vomiting #20 tabs famotidine 40 mg tablet 40 mg PO QDAY #30 tabs 10/01 famotidine 40 mg tablet 40 mg PO .bedtime #30 tabs 0 04/16/25 omeprazole 40 mg capsule,delayed 40 mg PO QDAY #30 cap s 04/16/25 release tobramycin 0.3 % eye drops 2 drp ophthalmic (eye) Q2H #5 mL 06/11/25 hyoscyamine sulfate 0.125 mg 0.125 mg PO TID PRN cram ping #10 10/03/25 tablet (Levsin) tabs pantoprazole 20 mg tablet,delayed 20 mg PO QDAY #30 ta bs 10/03/25 release (Protonix) Allergies Allergy/AdvReac Type Severity Reaction Status Date / Time ciprofloxacin Allergy Intermediate Rash Verified 10/14/25 14:35 latex Allergy Mild RASH Verified 10/14/25 14:35 metoclopramide AdvReac Severe ANXIETY, Verified 10/14/25 14:35 PANIC ATTACK cephalexin AdvReac Intermediate SEVERE Verified 10/14/25 14:35 DIARRHEA OMEGAXL Allergy Mild Rash Uncoded 10/14/25 14:35 Review of Systems Review of Systems Systems Reviewed: All systems reviewed, normal except as documented ED Exam Narrative Physical exam: Generally patient is alert and in no obvious distress and nontoxic in appearance, heart regular rate and rhythm, lungs clear to auscultation equal bilaterally, abdomen soft bowel sounds present nondistended nontender Course Quality Measures none Orders Category Date Time Status Bedside COVID-19 Antigen Test NOW Care 10/14/25 16:54 Active Bedside Influenza A&B Antigen Test NOW Care 10/14/25 16:54 Completed XR chest 1V Stat Exams 10/14/25 16:54 Completed Ibuprofen Tab [Motrin Tab] Med 10/14/25 16:54 Discontinued 800 mg PO X1 ONE Promethazine/Dextromethorph [Phenergan Dm Syrup] Med 10/14/25 16:54 Discontinued 5 ml PO X1 ONE Vital Signs Vital signs: Vital Signs Temperature 99.9 F 10/14/25 16:09 Pulse Rate 114 H 10/14/25 16:09 Respiratory Rate 20 10/14/25 16:09 Blood Pressure 122/79 10/14/25 16:09 Pulse Oximetry (%) 98 10/14/25 16:09 Oxygen Delivery Method Room Air 10/14/25 16:09 Shortness of Breath / Dyspnea MDM Narrative MDM Narrative:: COVID was negative. Influenza A was positive. Influenza B was negative. Chest x-ray is normal. Patient will be discharged in stable condition. Patient data External records reviewed:: Other (specify) Clinical information provided by:: none Social determinants that could affect healthcare access:: none Patient has the following chronic illnesses:: None How is presenting disease/condition affected by chronic disease/condition?: no chronic disease Evaluation data The following diagnostics were reviewed and interpreted by me:: other (specify) Lab and/or radiology exams considered but not ordered:: None Interpretation Summary: None Medications / Prescriptions Medications or Prescriptions considered but not ordered:: None Medication administrations:: Medication Administration History Discontinued Medications Ibuprofen (Ibuprofen Tab 400 Mg Tablet) 800 mg PO X1 ONE Stop: 10/14/25 16:55 Last Admin: 10/14/25 17:19 Dose: 800 mg Documented By: NANCY Promethazine HCl/Dextromethorphan (Promethazine/Dm Syrup 5 Ml Dose) 5 ml PO X1 ONE; Protocol Stop: 10/14/25 16:55 Last Admin: 10/14/25 17:19 Dose: 5 ml Documented By: NANCY None Consultations Consultation(s) initiated? (list below): No Diagnosis Shortness of Breath Differential Diagnosis: other Most likely diagnosis given after review of the tests above:: None Admission Indicated Admission indicated?: not indicated Admission Request Was there a request for admission?: No Disposition Plan Disposition Plan: Discharge Discharge Attestation Discharge Attestation: The patient and all family members were given an opportunity to ask questions and understood the discharge instructions. Discharge instructions specifically effects, indications for sooner follow up or return to the emergency department, and the expected course of current diagnosis. Patient condition: Stable Discharge Plan Plan Patient Disposition: HOME (Self Care) Prescriptions/Referrals Prescriptions/Med Rec: No Action Premarin 0.625 mg Tablet 0.625 mg PO QDAY omeprazole 20 mg Tablet,Delayed Release (Dr/Ec) 20 mg PO QDAY docusate sodium 100 mg Capsule 100 mg PO QDAY Qty: 30 0RF oxycodone-acetaminophen [Percocet] 10-325 mg tablet 1 tab PO Q8H MDD 3 PRN (Reason: pain) Qty: 40 0RF azithromycin 250 mg tablet See Rx Instructions .ROUTE .COMPLEX Qty: 6 0RF Rx Instructions: For 250 mg dose pack: take 500 mg today (day 1), then 250 mg for 4 days (days 2-5) albuterol sulfate 90 mcg/actuation HFA aerosol inhaler 2 puff inhalation QID PRN (Reason: shortness of breath or wheezing) Qty: 8.5 0RF promethazine 12.5 mg tablet 12.5 mg PO TID PRN (Reason: nausea and vomiting) Qty: 20 0RF famotidine 40 mg tablet 40 mg PO QDAY Qty: 30 0RF famotidine 40 mg tablet 40 mg PO .bedtime Qty: 30 0RF omeprazole 40 mg capsule,delayed release(DR/EC) 40 mg PO QDAY Qty: 30 0RF pantoprazole [Protonix] 20 mg tablet,delayed release (DR/EC) 20 mg PO QDAY Qty: 30 0RF hyoscyamine sulfate [Levsin] 0.125 mg tablet 0.125 mg PO TID PRN (Reason: cramping) Qty: 10 0RF tobramycin 0.3 % drops 2 drp ophthalmic (eye) Q2H Qty: 5 0RF Referrals: Rosendo Koch MD [Primary Care Provider, Family Practice] - In 1 week Problem List Clinical Impression: Influenza A Patient/Caregiver Discharge Instructions Education Materials: ED Influenza (Adult) Additional Instructions: Tylenol and ibuprofen for fever and bodyaches. Keep well-hydrated. Print Language: Cambodian Stand Alone Forms: Debbie Award Info., Patient Portal Info Letter
== END 2025-10-14 18:56 | disposition home or self-care (01) ==
PROVIDERS: Emergency Provider Emergency Medicine; PCP Family Medicine
DX: J10.1 Influenza due to other identified influenza virus with other respiratory manifestations (principal)
CPT/HCPCS: 71045; 87502; 87635; 99283; A9270